=== PATIENT | male | born 1960 | race Caucasian/White ===

== ENCOUNTER 2022-02-14 11:18 | Inpatient (IN) | payer OTHER ==
[~2022-02-14] VITALS: Ht 180.3 cm; Wt 89.9 kg
[~2022-02-14 11:18] MED LIST: heparin 10,000 units/1 ML INJ ONE; papaverine 30 mg/ml 2ml inj. ONE
[2022-02-14 11:43] LABS: BASOPHILS # (AUTO) 0.1 X10'3 (0-0.2); EOSINOPHILS # (AUTO) 0.4 X10'3 (0-0.9); EOSINOPHILS % (AUTO) 5.3 % (0-6); HEMATOCRIT 50.5 % (42.0-52.0); HEMOGLOBIN 16.6 g/dl (14.0-17.9); LYMPHOCYTES # (AUTO) 1.9 X10'3 (1.1-4.8); LYMPHOCYTES % (AUTO) 22.8 % (21-51); MEAN CORPUSCULAR HEMOGLOBIN 29.2 PG (27.0-31.0); MEAN CORPUSCULAR HGB CONC 32.9 g/dL (33.0-36.5); MEAN CORPUSCULAR VOLUME 88.9 FL (78-98); MONOCYTES # (AUTO) 0.9 X10'3 (0-0.9); MONOCYTES % (AUTO) 10.9 % (2-12); PLATELET COUNT 246 X10'3 (140-440); RED BLOOD COUNT 5.69 X10'6 (4.70-6.10); RED CELL DISTRIBUTION WIDTH 14.2 % (11.5-14.5); WHITE BLOOD COUNT 8.4 X10'3 (4.5-11.0)
[2022-02-14 12:01] LABS: ALANINE AMINOTRANSFERASE 56 U/L (12-78); ALBUMIN 3.7 G/DL (3.4-5.0); ALBUMIN/GLOBULIN RATIO 1.1 (1.1-1.5); ALKALINE PHOSPHATASE 82 IU/L (46-116); ANION GAP 7 (8-16); ASPARTATE AMINO TRANSFERASE 37 U/L (10-37); BILIRUBIN,TOTAL 0.5 MG/DL (0.1-1.0); BLOOD UREA NITROGEN 19 MG/DL (7-18); CALCIUM 9.2 MG/DL (8.5-10.1); CHLORIDE 102 MMOL/L (99-107); CREATININE 1.12 MG/DL (0.60-1.10); GLUCOSE 122 MG/DL (70-104); POTASSIUM 3.9 MMOL/L (3.5-5.1); SODIUM 138 MMOL/L (135-145); TOTAL CARBON DIOXIDE 28.7 MMOL/L (24-32); TOTAL PROTEIN 7.2 G/DL (6.4-8.2); eGFR 67 ML/MIN
[2022-02-14] MEDS ORDERED: aspirin 81mg tab.chew PO ONE (12:55)
[2022-02-14] MEDS ORDERED: heparin 10,000 units/1 ML INJ IV ONE (12:59)
[2022-02-14] MEDS: heparin 25,000 UNIT/250ml bag 250 ML IV PRN (13:08)
[2022-02-14 13:31] LABS: APTT 30 SECONDS (22-32)
[2022-02-14] MEDS ORDERED: magnesium hydroxide 30ml (MOM) UD suspension PO PRN (14:00)
[2022-02-14] MEDS ORDERED: HYDROcodone/acetaminophen 5mg/325mg tablet PO PRN (14:00)
[2022-02-14] MEDS ORDERED: ondansetron/PF 4mg/2ml inj IV PRN (14:00)
[2022-02-14] MEDS ORDERED: mag hydrox/Alum hydrox/simeth 30ml oral suspension PO PRN (14:00)
[2022-02-14] MEDS ORDERED: HYDROcodone/acetaminophen 10/325mg tab PO PRN (14:00)
[2022-02-14] MEDS ORDERED: morphine 2 MG/ML inj. syringe IV PRN ×2 (14:00)
[2022-02-14] MEDS ORDERED: nitroGLYCERIN 0.4mg SUBLingual tab SL PRN (14:00)
[2022-02-14] MEDS ORDERED: acetaminophen 325mg tablet PO PRN ×2 (14:00)
--- NOTE | 2022-02-14 15:00 | NUR ---
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
[2022-02-14] MEDS ORDERED: ROSU40TA PO (15:18)
[2022-02-14 15:21] LABS: HEMOGLOBIN A1C 5.9 % (4.5-6.2)
[2022-02-14] MEDS: metoprolol succinate 25mg (24-HOUR) SR. Tablet PO SCH (17:41)
[2022-02-14] MEDS: docusate sod 100mg capsule PO SCH (20:00)
[2022-02-15] VITALS (11 sets, daily range): BP systolic 118–147; BP diastolic 74–94
--- NOTE | 2022-02-15 00:55 | NUR ---
BLOOD SENT TO LAB
--- NOTE | 2022-02-15 01:00 | NUR ---
PTT OF 47, NO CHANGE TO HEPRIN GTT, NEXT PTT AT 0800
--- NOTE | 2022-02-15 07:20 | NUR ---
RN called [facility] to give report for pt @ 2556. Receiving RN unable to take phone call at this time. Will call back shortly.
--- NOTE | 2022-02-15 07:37 | NUR ---
RN gave nurse report to TATUM Phelan at 0727. Pt ready for transfer to floor. Pt stable, VS WNL, pt denies chest pain. Heparin gtt infusing @ 1000 u/hr. Receiving RN notified of need for aptt @ 0800.
--- NOTE | 2022-02-15 07:57 | NUR ---
Pt arrived to 3026 U @ 5692. Pt stable. Call-light within reach. Unit staff aware of pt's arrival.
[2022-02-15 09:17] LABS: BASOPHILS # (AUTO) 0.1 X10'3 (0-0.2); BASOPHILS % (AUTO) 0.9 % (0-1); EOSINOPHILS # (AUTO) 0.4 X10'3 (0-0.9); EOSINOPHILS % (AUTO) 4.7 % (0-6); HEMATOCRIT 51.7 % (42.0-52.0); LYMPHOCYTES % (AUTO) 21.7 % (21-51); MEAN CORPUSCULAR HEMOGLOBIN 29.6 PG (27.0-31.0); MEAN CORPUSCULAR VOLUME 89.8 FL (78-98); MEAN PLATELET VOLUME 8.4 FL (7.4-10.4); MONOCYTES # (AUTO) 0.9 X10'3 (0-0.9); MONOCYTES % (AUTO) 9.4 % (2-12); NEUTROPHILS # (AUTO) 5.9 X10'3 (1.8-7.7); NEUTROPHILS % (AUTO) 63.3 % (42-75); PLATELET COUNT 231 X10'3 (140-440); RED BLOOD COUNT 5.76 X10'6 (4.70-6.10); RED CELL DISTRIBUTION WIDTH 14.3 % (11.5-14.5); WHITE BLOOD COUNT 9.4 X10'3 (4.5-11.0)
[2022-02-15 09:44] LABS: ALBUMIN 3.7 G/DL (3.4-5.0); ANION GAP 5 (8-16); BLOOD UREA NITROGEN 16 MG/DL (7-18); BUN/CREATININE RATIO 15.4 (5.4-32.0); CALCIUM 9.2 MG/DL (8.5-10.1); CHLORIDE 103 MMOL/L (99-107); CHOLESTEROL 145 MG/DL (0-200); CREATININE 1.04 MG/DL (0.60-1.10); GLUCOSE 84 MG/DL (70-104); HDL CHOLESTEROL 48 MG/DL (35-60); LDL CHOLESTEROL 72 MG/DL (50-100); POTASSIUM 3.9 MMOL/L (3.5-5.1); SODIUM 140 MMOL/L (135-145); TOTAL CARBON DIOXIDE 31.9 MMOL/L (24-32); TRIGLYCERIDES 208 MG/DL (20-135); eGFR 73 ML/MIN
[2022-02-15] MEDS: heparin 25,000 UNIT/250ml bag 250 ML IV PRN ×2 (09:49→19:03)
[2022-02-15] MEDS: metoprolol succinate 25mg (24-HOUR) SR. Tablet PO SCH (10:04)
[2022-02-15] MEDS: atorvastatin 20mg tablet PO SCH (10:04)
[2022-02-15] MEDS: aspirin 81mg, enteric-coated 1 TAB TABLET.DR PO SCH (10:05)
[2022-02-15] MEDS: docusate sod 100mg capsule PO SCH ×2 (10:06→20:20)
[2022-02-15] MEDS: heparin 10,000 units/1 ML INJ IV PRN (10:12)
[2022-02-15] MEDS ORDERED: midazolam 1 mg/ML 2ml injection ONE (11:29)
[2022-02-15] MEDS ORDERED: nitroGLYCERIN-Tridil 50MG/D5W 250 ML IV ONE (11:29)
[2022-02-15] MEDS ORDERED: verapamil 2.5 mg/ml inj IV ONE (11:29)
[2022-02-15] MEDS ORDERED: iohexol 350MG/ML 100ml bottle IV ONE ×2 (11:30→12:21)
[2022-02-15] MEDS ORDERED: LIDOcaine 1% 30ml preserv. free vial ONE (11:30)
[2022-02-15] MEDS ORDERED: heparin 1,000unit/ml 10ml vial 10 ML ONE (11:30)
[2022-02-15] MEDS ORDERED: fentaNYL/PF 50MCG/1 ML 2ML syringe ONE (11:30)
[2022-02-15] MEDS ORDERED: adenosine 90 MG/30ml kit =/or below 120kg Cath Lab IV ONE (12:21)
[2022-02-15] MEDS ORDERED: heparin 1,000 UNITS/NS 500ml 500 ML ONE (12:35)
[2022-02-15] MEDS ORDERED: HYDROcodone/acetaminophen 10/325mg tab PO PRN (13:35)
[2022-02-15] MEDS ORDERED: HYDROcodone/acetaminophen 5mg/325mg tablet PO PRN (13:35)
[2022-02-15] MEDS: pantoprazole 40mg Tablet.DR PO SCH (20:20)
[2022-02-15] MEDS: allopurinol 100mg tablet PO SCH (20:21)
[2022-02-15] MEDS: ALPRAZolam 0.25mg tablet PO SCH (23:34)
[2022-02-16 02:35] VITALS: BP 125/65
--- NOTE | 2022-02-16 02:57 | NUR ---
APTT 52. THERAPEUTIC RANGE. NO CHANGES IN HEPARIN GTT PER PROTOCOL. NO BLEEDING TENDENCIES NOTED.
[2022-02-16 06:00] VITALS: BP 120/71
--- NOTE | 2022-02-16 06:37 | NUR ---
Patient in room U 3026. I have received report from ANA LAURA WINN and had the opportunity to ask questions and assume patient care.Bedside report completed. Pt awake. C/O cold feet, Warm blanket applied. Addendum: 02/16/22 at 0639 by Olga Sharma RN Amended: Links added.
[2022-02-16] MEDS: docusate sod 100mg capsule PO SCH ×2 (08:29→22:22)
[2022-02-16] MEDS: atorvastatin 20mg tablet PO SCH (08:29)
[2022-02-16] MEDS: aspirin 81mg, enteric-coated 1 TAB TABLET.DR PO SCH (08:29)
[2022-02-16] MEDS: metoprolol succinate 25mg (24-HOUR) SR. Tablet PO SCH (08:30)
[2022-02-16] MEDS: pantoprazole 40mg Tablet.DR PO SCH ×2 (08:30→22:22)
[2022-02-16] MEDS: ALPRAZolam 0.25mg tablet PO SCH ×3 (08:30→22:26)
[2022-02-16] MEDS: allopurinol 100mg tablet PO SCH ×2 (08:31→22:22)
[2022-02-16 08:47] LABS: BASOPHILS # (AUTO) 0.1 X10'3 (0-0.2); EOSINOPHILS # (AUTO) 0.4 X10'3 (0-0.9); EOSINOPHILS % (AUTO) 5.3 % (0-6); HEMATOCRIT 48.4 % (42.0-52.0); HEMOGLOBIN 16.5 g/dl (14.0-17.9); LYMPHOCYTES # (AUTO) 1.6 X10'3 (1.1-4.8); LYMPHOCYTES % (AUTO) 23.8 % (21-51); MEAN CORPUSCULAR HEMOGLOBIN 29.9 PG (27.0-31.0); MONOCYTES # (AUTO) 0.4 X10'3 (0-0.9); MONOCYTES % (AUTO) 6.7 % (2-12); NEUTROPHILS # (AUTO) 4.2 X10'3 (1.8-7.7); NEUTROPHILS % (AUTO) 63.2 % (42-75); PLATELET COUNT 207 X10'3 (140-440); RED BLOOD COUNT 5.51 X10'6 (4.70-6.10); WHITE BLOOD COUNT 6.7 X10'3 (4.5-11.0)
[2022-02-16 08:58] LABS: ALBUMIN 3.4 G/DL (3.4-5.0); ANION GAP 8 (8-16); BLOOD UREA NITROGEN 15 MG/DL (7-18); BUN/CREATININE RATIO 14.7 (5.4-32.0); CALCIUM 8.8 MG/DL (8.5-10.1); CHLORIDE 101 MMOL/L (99-107); CREATININE 1.02 MG/DL (0.60-1.10); GLUCOSE 160 MG/DL (70-104); POTASSIUM 3.7 MMOL/L (3.5-5.1); SODIUM 136 MMOL/L (135-145); TOTAL CARBON DIOXIDE 26.7 MMOL/L (24-32); eGFR 75 ML/MIN
[2022-02-16] MEDS: heparin 10,000 units/1 ML INJ IV PRN (10:15)
[2022-02-16 11:00] VITALS: BP 120/72
[2022-02-16 15:28] VITALS: BP 129/77
--- NOTE | 2022-02-16 16:33 | NUR ---
PAGER ID: [phone] MESSAGE: [id number] [phone]. The Hep gtt was turned off unknown by me. I just discovered this. Unknown how long it has been off. It is time for PTT draw. I will restart gtt at base 1200. Olga STEEL
[2022-02-16] MEDS: heparin 25,000 UNIT/250ml bag 250 ML IV PRN (16:38)
[2022-02-16 18:00] VITALS: BP 124/60
--- NOTE | 2022-02-16 18:32 | NUR ---
Problems reprioritized. Patient report given, questions answered & plan of care reviewed with Efraín WINN. Bedside report completed. pt visitors at bedside. Addendum: 02/16/22 at 1833 by Olga Sharma RN Amended: Links added.
[2022-02-16 22:00] VITALS: BP 120/68
[2022-02-17 02:00] VITALS: BP 114/66
[2022-02-17 06:40] LABS: BASOPHILS # (AUTO) 0.1 X10'3 (0-0.2); BASOPHILS % (AUTO) 0.9 % (0-1); EOSINOPHILS # (AUTO) 0.4 X10'3 (0-0.9); HEMATOCRIT 49.6 % (42.0-52.0); HEMOGLOBIN 16.6 g/dl (14.0-17.9); LYMPHOCYTES # (AUTO) 2.2 X10'3 (1.1-4.8); LYMPHOCYTES % (AUTO) 30.7 % (21-51); MEAN CORPUSCULAR HEMOGLOBIN 30.1 PG (27.0-31.0); MEAN CORPUSCULAR HGB CONC 33.5 g/dL (33.0-36.5); MEAN CORPUSCULAR VOLUME 89.7 FL (78-98); MEAN PLATELET VOLUME 8.5 FL (7.4-10.4); MONOCYTES # (AUTO) 0.8 X10'3 (0-0.9); MONOCYTES % (AUTO) 10.5 % (2-12); NEUTROPHILS # (AUTO) 3.8 X10'3 (1.8-7.7); NEUTROPHILS % (AUTO) 51.9 % (42-75); PLATELET COUNT 228 X10'3 (140-440); RED BLOOD COUNT 5.53 X10'6 (4.70-6.10); RED CELL DISTRIBUTION WIDTH 14.2 % (11.5-14.5); WHITE BLOOD COUNT 7.3 X10'3 (4.5-11.0)
[2022-02-17 06:47] LABS: ALBUMIN 3.5 G/DL (3.4-5.0); ANION GAP 7 (8-16); BLOOD UREA NITROGEN 15 MG/DL (7-18); BUN/CREATININE RATIO 14.3 (5.4-32.0); CALCIUM 9.1 MG/DL (8.5-10.1); CHLORIDE 103 MMOL/L (99-107); CREATININE 1.05 MG/DL (0.60-1.10); GLUCOSE 97 MG/DL (70-104); POTASSIUM 3.9 MMOL/L (3.5-5.1); SODIUM 139 MMOL/L (135-145); eGFR 72 ML/MIN
[2022-02-17 07:00] VITALS: BP 137/77
[2022-02-17] MEDS: heparin 10,000 units/1 ML INJ IV PRN ×2 (07:13→20:58)
[2022-02-17] MEDS: aspirin 81mg, enteric-coated 1 TAB TABLET.DR PO SCH (08:21)
[2022-02-17] MEDS: docusate sod 100mg capsule PO SCH ×2 (08:21→19:23)
[2022-02-17] MEDS: atorvastatin 20mg tablet PO SCH (08:21)
[2022-02-17] MEDS: pantoprazole 40mg Tablet.DR PO SCH ×2 (08:21→19:23)
[2022-02-17] MEDS: allopurinol 100mg tablet PO SCH ×2 (08:21→19:23)
[2022-02-17] MEDS: ALPRAZolam 0.25mg tablet PO SCH ×2 (08:22→16:23)
[2022-02-17] MEDS: metoprolol succinate 25mg (24-HOUR) SR. Tablet PO SCH (08:22)
[2022-02-17 11:00] VITALS: BP 96/68
[2022-02-17 15:00] VITALS: BP 126/79
[2022-02-17 15:50] LABS: MAGNESIUM 2.4 MG/DL (1.5-2.4)
[2022-02-17 18:00] VITALS: BP 113/72
[2022-02-17] MEDS: heparin 25,000 UNIT/250ml bag 250 ML IV PRN (19:20)
[2022-02-17 22:00] VITALS: BP 114/71
[2022-02-18] MEDS: ALPRAZolam 0.25mg tablet PO SCH ×3 (00:35→16:59)
[2022-02-18 02:00] VITALS: BP 106/53
--- NOTE | 2022-02-18 04:41 | NUR ---
notified of pts ptt of 132 and heparin drip stopped per protocol.
[2022-02-18 06:00] VITALS: BP 134/82
[2022-02-18 06:06] LABS: BASOPHILS # (AUTO) 0.1 X10'3 (0-0.2); BASOPHILS % (AUTO) 0.7 % (0-1); EOSINOPHILS # (AUTO) 0.5 X10'3 (0-0.9); EOSINOPHILS % (AUTO) 6.2 % (0-6); HEMATOCRIT 49.8 % (42.0-52.0); HEMOGLOBIN 16.5 g/dl (14.0-17.9); LYMPHOCYTES # (AUTO) 2.1 X10'3 (1.1-4.8); LYMPHOCYTES % (AUTO) 26.8 % (21-51); MEAN CORPUSCULAR HEMOGLOBIN 29.8 PG (27.0-31.0); MEAN CORPUSCULAR HGB CONC 33.2 g/dL (33.0-36.5); MEAN CORPUSCULAR VOLUME 89.7 FL (78-98); MEAN PLATELET VOLUME 8.3 FL (7.4-10.4); MONOCYTES # (AUTO) 0.8 X10'3 (0-0.9); MONOCYTES % (AUTO) 10.4 % (2-12); NEUTROPHILS # (AUTO) 4.3 X10'3 (1.8-7.7); NEUTROPHILS % (AUTO) 55.9 % (42-75); PLATELET COUNT 221 X10'3 (140-440); RED BLOOD COUNT 5.55 X10'6 (4.70-6.10); RED CELL DISTRIBUTION WIDTH 14.2 % (11.5-14.5); WHITE BLOOD COUNT 7.7 X10'3 (4.5-11.0)
[2022-02-18 06:21] LABS: ALBUMIN 3.4 G/DL (3.4-5.0); ANION GAP 9 (8-16); BLOOD UREA NITROGEN 18 MG/DL (7-18); CALCIUM 9.1 MG/DL (8.5-10.1); CHLORIDE 102 MMOL/L (99-107); CREATININE 1.06 MG/DL (0.60-1.10); GLUCOSE 103 MG/DL (70-104); SODIUM 138 MMOL/L (135-145); TOTAL CARBON DIOXIDE 27.2 MMOL/L (24-32); eGFR 72 ML/MIN
--- NOTE | 2022-02-18 06:40 | NUR ---
Problems reprioritized. Patient report given, questions answered & plan of care reviewed with MARIAM WINN.
--- NOTE | 2022-02-18 07:40 | NUR ---
Paged PAGER ID: [phone] MESSAGE: [id number]. Anh. Critical troponin 1689. Pt CP free & planned CABG for 02/19. Elaina Rdz [phone]
[2022-02-18] MEDS: metoprolol succinate 25mg (24-HOUR) SR. Tablet PO SCH (08:02)
[2022-02-18] MEDS: docusate sod 100mg capsule PO SCH ×2 (08:02→19:47)
[2022-02-18] MEDS: atorvastatin 20mg tablet PO SCH (08:03)
[2022-02-18] MEDS: pantoprazole 40mg Tablet.DR PO SCH ×2 (08:03→19:47)
[2022-02-18] MEDS: aspirin 81mg, enteric-coated 1 TAB TABLET.DR PO SCH (08:03)
[2022-02-18] MEDS: allopurinol 100mg tablet PO SCH ×2 (08:03→19:47)
--- NOTE | 2022-02-18 09:10 | NUR ---
Initial: pt admitted w/ NSTEMI, planning to go for CABG per EMR. Currently on Heart Healthy diet w/ mostly 100% intake of meals meeting est needs at this time. LBM 02/16 receiving routine colace. No nutrition intervention implemented at this time, will continue to monitor. Recommendations 1. Continue Heart Healthy diet as tolerated 2. Monitor need for additional protein s/p procedure 3. Bowel care per rx 4. Scaled wts Addendum: 02/18/22 at [address] Amended: Links added.
[2022-02-18 10:15] VITALS: BP 138/77
[2022-02-18] MEDS: heparin 25,000 UNIT/250ml bag 250 ML IV PRN (11:51)
--- NOTE | 2022-02-18 14:07 | NUR ---
PAGER ID: [phone] MESSAGE: [id number]. critical ptt, held heparin per protocol. Elaina Rdz [phone]
[2022-02-18 15:05] VITALS: BP 113/78
[2022-02-18 17:10] LABS: ABG HCO3 24.3 mmol/L (22.0-26.0); ABG OXYGEN SATURATION 95.1 % (94-97); ABG PCO2 (T) 38.9 mmHg (35.0-48.0); ABG PO2 (T) 73.6 mmHg (75.0-100.0); ALLEN'S TEST POSITIVE; FCOHb 0.5 % (0.0-3.9); FMetHb 0.2 % (0.0-1.5); FO2Hb 94.4 % (94-97); TOTAL HEMOGLOBIN 17.3 G/dl (14.0-17.9)
[2022-02-18 19:00] VITALS: BP 109/72
--- NOTE | 2022-02-18 19:23 | NUR ---
Student documentation: I have reviewed and agree with all interventions, assessments performed and documented by Leah.
[2022-02-18 22:00] VITALS: BP 115/72
[2022-02-19] MEDS: ALPRAZolam 0.25mg tablet PO SCH ×3 (00:42→15:33)
[2022-02-19 02:00] VITALS: BP 117/79
[2022-02-19 06:00] VITALS: BP 130/83
--- NOTE | 2022-02-19 06:22 | NUR ---
Problems reprioritized. Patient report given, questions answered & plan of care reviewed with MARIAM WINN.
--- NOTE | 2022-02-19 06:27 | NUR ---
Per pt request. All AM labs will be drawn at 0800 when cardiac PTT is due too.
[2022-02-19] MEDS ORDERED: dextrose 50%-water 50ml dispensing syringe IV PRN (08:20)
[2022-02-19] MEDS ORDERED: insulin glargine (Lantus) pen - multi-dose SQ PRN (08:20)
[2022-02-19] MEDS ORDERED: gabapentin 400mg capsule PO ONE (08:20)
[2022-02-19] MEDS ORDERED: cefazolin/dext.iso 2gm/50ml 50 ML IV ONE (08:20)
[2022-02-19] MEDS ORDERED: Insulin Reg/NS 100units/100mL 100 ML IV SCH (08:20)
[2022-02-19] MEDS: atorvastatin 20mg tablet PO SCH (08:25)
[2022-02-19] MEDS: metoprolol succinate 25mg (24-HOUR) SR. Tablet PO SCH (08:26)
[2022-02-19] MEDS: docusate sod 100mg capsule PO SCH ×2 (08:27→21:24)
[2022-02-19] MEDS: allopurinol 100mg tablet PO SCH ×2 (08:28→21:26)
[2022-02-19] MEDS: aspirin 81mg, enteric-coated 1 TAB TABLET.DR PO SCH (08:28)
[2022-02-19] MEDS: pantoprazole 40mg Tablet.DR PO SCH ×2 (08:28→21:24)
[2022-02-19 08:49] LABS: BASOPHILS # (AUTO) 0.1 X10'3 (0-0.2); BASOPHILS % (AUTO) 0.9 % (0-1); EOSINOPHILS # (AUTO) 0.4 X10'3 (0-0.9); EOSINOPHILS % (AUTO) 5.2 % (0-6); HEMATOCRIT 50.6 % (42.0-52.0); HEMOGLOBIN 17.1 g/dl (14.0-17.9); LYMPHOCYTES % (AUTO) 25.2 % (21-51); MEAN CORPUSCULAR HGB CONC 33.8 g/dL (33.0-36.5); MEAN PLATELET VOLUME 8.4 FL (7.4-10.4); MONOCYTES # (AUTO) 0.5 X10'3 (0-0.9); MONOCYTES % (AUTO) 6.7 % (2-12); NEUTROPHILS # (AUTO) 4.9 X10'3 (1.8-7.7); PLATELET COUNT 238 X10'3 (140-440); RED BLOOD COUNT 5.69 X10'6 (4.70-6.10); RED CELL DISTRIBUTION WIDTH 14.2 % (11.5-14.5); WHITE BLOOD COUNT 7.8 X10'3 (4.5-11.0)
[2022-02-19 08:57] LABS: ALBUMIN 3.7 G/DL (3.4-5.0); ANION GAP 7 (8-16); BLOOD UREA NITROGEN 19 MG/DL (7-18); BUN/CREATININE RATIO 16.2 (5.4-32.0); CALCIUM 9.4 MG/DL (8.5-10.1); CHLORIDE 101 MMOL/L (99-107); CREATININE 1.17 MG/DL (0.60-1.10); GLUCOSE 163 MG/DL (70-104); POTASSIUM 4.2 MMOL/L (3.5-5.1); SODIUM 135 MMOL/L (135-145); TOTAL CARBON DIOXIDE 27.3 MMOL/L (24-32); eGFR 64 ML/MIN
[2022-02-19 10:30] VITALS: BP 144/80
[2022-02-19] MEDS: heparin 25,000 UNIT/250ml bag 250 ML IV PRN (11:50)
[2022-02-19 13:00] VITALS: BP 131/88
[2022-02-19 18:00] VITALS: BP 131/82
--- NOTE | 2022-02-19 18:24 | NUR ---
Problems reprioritized. Patient report given, questions answered & plan of care reviewed with TATUM Bennett.
--- NOTE | 2022-02-19 18:24 | NUR ---
Student documentation: I have reviewed and agree with all interventions, assessments performed and documented by Leah.
--- NOTE | 2022-02-19 18:25 | NUR ---
Patient in room PCU 3026. I have received report from TATUM Alvarado and had the opportunity to ask questions and assume patient care. Patient resting comfortably on hospital bed visiting with family.
[2022-02-19] MEDS ORDERED: mupirocin 2% nasal ointment 1gm UD NS SCH (20:00)
[2022-02-19 22:00] VITALS: BP 112/71
[2022-02-19] MEDS ORDERED: ringers solution, lacted 1,000 ML IV ONE (22:05)
[2022-02-20] VITALS (15 sets, daily range): BP systolic 102–202; BP diastolic 54–83
[2022-02-20] MEDS: ALPRAZolam 0.25mg tablet PO SCH (00:20)
[2022-02-20 02:36] LABS: BASOPHILS # (AUTO) 0.1 X10'3 (0-0.2); BASOPHILS % (AUTO) 0.9 % (0-1); EOSINOPHILS # (AUTO) 0.5 X10'3 (0-0.9); EOSINOPHILS % (AUTO) 5.8 % (0-6); HEMATOCRIT 49.9 % (42.0-52.0); HEMOGLOBIN 16.5 g/dl (14.0-17.9); LYMPHOCYTES # (AUTO) 1.8 X10'3 (1.1-4.8); LYMPHOCYTES % (AUTO) 21.6 % (21-51); MEAN CORPUSCULAR HEMOGLOBIN 29.5 PG (27.0-31.0); MEAN CORPUSCULAR HGB CONC 33.1 g/dL (33.0-36.5); MEAN CORPUSCULAR VOLUME 89.3 FL (78-98); MEAN PLATELET VOLUME 8.3 FL (7.4-10.4); MONOCYTES # (AUTO) 0.7 X10'3 (0-0.9); MONOCYTES % (AUTO) 9.2 % (2-12); NEUTROPHILS # (AUTO) 5.1 X10'3 (1.8-7.7); NEUTROPHILS % (AUTO) 62.5 % (42-75); PLATELET COUNT 231 X10'3 (140-440); RED BLOOD COUNT 5.58 X10'6 (4.70-6.10); RED CELL DISTRIBUTION WIDTH 14.3 % (11.5-14.5); WHITE BLOOD COUNT 8.1 X10'3 (4.5-11.0)
[2022-02-20 02:42] LABS: ALBUMIN 3.5 G/DL (3.4-5.0); ANION GAP 8 (8-16); BLOOD UREA NITROGEN 19 MG/DL (7-18); CHLORIDE 100 MMOL/L (99-107); CREATININE 1.12 MG/DL (0.60-1.10); GLUCOSE 116 MG/DL (70-104); POTASSIUM 3.8 MMOL/L (3.5-5.1); SODIUM 136 MMOL/L (135-145); TOTAL CARBON DIOXIDE 27.9 MMOL/L (24-32); eGFR 67 ML/MIN
[2022-02-20] MEDS ORDERED: Insulin Reg/NS 100units/100mL 100 ML IV SCH ×2 (05:30→14:00)
[2022-02-20] MEDS ORDERED: cefazolin/dext.iso 2gm/50ml 50 ML IV ONE (05:30)
[2022-02-20] MEDS ORDERED: insulin glargine (Lantus) pen - multi-dose SQ PRN ×2 (05:30→14:00)
[2022-02-20] MEDS ORDERED: LORazepam 2 mg/ml vial IV ONE (06:00)
[2022-02-20] MEDS ORDERED: famotidine 20mg tablet PO ONE (06:00)
[2022-02-20] MEDS ORDERED: ceFAZolin 1000mg inj ONE ×3 (06:22→11:21)
[2022-02-20] MEDS ORDERED: BUPIVAcaine/PF 2.5 mg/ml (0.25%) 30ml vial ONE (06:23)
--- NOTE | 2022-02-20 06:24 | NUR ---
Problems reprioritized. Patient report given, questions answered & plan of care reviewed with TATUM Wen.
--- NOTE | 2022-02-20 06:55 | NUR ---
Patient in room PCU 3026. I have received report from Sabrina WINN and had the opportunity to ask questions and assume patient care.
[2022-02-20] MEDS ORDERED: epiNEPHrine 1 mg/ml inj ONE ×2 (07:05→11:21)
[2022-02-20] MEDS: metoprolol succinate 25mg (24-HOUR) SR. Tablet PO SCH (07:47)
[2022-02-20] MEDS ORDERED: midazolam 1 mg/ML 2ml injection ONE (07:57)
[2022-02-20] MEDS ORDERED: fentaNYL /PF 50mcg/ml 5ml ampule ONE ×2 (07:58→09:09)
[2022-02-20] MEDS: allopurinol 100mg tablet PO SCH ×2 (08:00→20:00)
[2022-02-20] MEDS ORDERED: aminocaproic acid 250 MG/1 ML inj. ONE (08:00)
[2022-02-20] MEDS ORDERED: heparin 10,000 units/1 ML INJ ONE (08:00)
[2022-02-20] MEDS ORDERED: LORazepam 2 mg/ml vial ONE (08:01)
[2022-02-20] MEDS ORDERED: MESSAGE TO PHARMACY IJ ONE (08:30)
[2022-02-20] MEDS: albumin (human) 5% 500 ML NS IV SCH ×4 (08:35→14:56)
[2022-02-20 08:59] LABS: ABG BASE EXCESS 1.2 mmol/L (-2.0-2.0); ABG HCO3 24.8 mmol/L (22.0-26.0); ABG OXYGEN SATURATION 99.7 % (94-97); ABG PCO2 36.5 mmHg (35.0-48.0); ABG PO2 348.3 mmHg (75.0-100.0); CL (ABG) 102 mmol/L (99-107); FCOHb 0.9 % (0.0-3.9); FMetHb 0.1 % (0.0-1.5); FO2Hb 98.7 % (94-97); GLUCOSE (ABG) 104 mg/dl (70-104); IONIZED CA (ABG) 1.16 mmol/L (1.10-1.30); K (ABG) 4.3 mmol/L (3.5-5.1); TOTAL HEMOGLOBIN 17.1 G/dl (14.0-17.9)
[2022-02-20] MEDS ORDERED: albumin (human) 5% 500 ML NS IV SCH ×2 (09:15)
[2022-02-20 09:17] LABS: ACT @ 1.70 U 304 SEC (193-297); ACT @ 2.84 U 431 SEC (260-420); BASELINE ACT 159 SEC (101-148); PATIENT WEIGHT 91.0k KG
[2022-02-20] MEDS: heparin 10,000 units/1 ML INJ IV PRN (09:31)
--- NOTE | 2022-02-20 09:35 | NUR ---
Pt transferred to OR at 0815 for CABG. Will go to ICU after surgery.
[2022-02-20] MEDS ORDERED: MESSAGE TO NURSING PO ONE ×4 (10:00)
[2022-02-20] MEDS ORDERED: papaverine 30 mg/ml 2ml inj. IA ONE (10:05)
[2022-02-20 10:13] LABS: ABG BASE EXCESS VENOUS -0.6 mmol/L (-2.0 - 2.0); ABG HCO3 VENOUS 25.3 mmol/L (21.0-28.0); ABG PCO2 VENOUS 45.8 mmHg (41.0-54.0); ABG PO2 VENOUS 59.6 mmHg (25.0-35.0); CL (ABG) 101 mmol/L (99-107); FCOHb VENOUS 1.4 %; FHHb VENOUS 9.9 %; FMetHb VENOUS 0.4 % (0.0 - 0.5); FO2Hb VENOUS 88.3 %; GLUCOSE (ABG) 137 mg/dl (70-104); K (ABG) 3.7 mmol/L (3.5-5.1); TOTAL HEMOGLOBIN 15.6 G/dl (14.0-17.9)
[2022-02-20] MEDS ORDERED: ipratropium/albuterol 3ml nebule IH PRN (10:45)
[2022-02-20 10:55] LABS: ABG BASE EXCESS VENOUS 0.2 mmol/L (-2.0 - 2.0); ABG PCO2 VENOUS 41.1 mmHg (41.0-54.0); ABG PO2 VENOUS 46.1 mmHg (25.0-35.0); CL (ABG) 101 mmol/L (99-107); FCOHb VENOUS 1.1 %; FHHb VENOUS 17.5 %; FMetHb VENOUS 0.3 % (0.0 - 0.5); FO2Hb VENOUS 81.1 %; GLUCOSE (ABG) 127 mg/dl (70-104); IONIZED CA (ABG) 1.09 mmol/L (1.10-1.30); K (ABG) 4.2 mmol/L (3.5-5.1); TOTAL HEMOGLOBIN 15.5 G/dl (14.0-17.9)
[2022-02-20] MEDS ORDERED: phenylephrine 10mg/ml inj. ONE (11:21)
[2022-02-20] MEDS ORDERED: rocuronium 10mg/ml inj IV ONE (11:21)
[2022-02-20] MEDS ORDERED: etomidate 2mg/ml inj. ONE (11:21)
[2022-02-20] MEDS ORDERED: LIDOcaine 2% (20mg/ml) 5ml vial ONE (11:21)
[2022-02-20 11:45] LABS: ABG PCO2 VENOUS 38.5 mmHg (41.0-54.0); ABG PO2 VENOUS 49.4 mmHg (25.0-35.0); CL (ABG) 101 mmol/L (99-107); FCOHb VENOUS 1.1 %; FHHb VENOUS 15.8 %; FO2Hb VENOUS 83.1 %; GLUCOSE (ABG) 130 mg/dl (70-104); IONIZED CA (ABG) 1.11 mmol/L (1.10-1.30); K (ABG) 4.5 mmol/L (3.5-5.1); TOTAL HEMOGLOBIN 15.2 G/dl (14.0-17.9)
[2022-02-20 13:20] LABS: ACTIVATED CLOTTING TIME 112 SEC (101-148)
[2022-02-20 13:20] LABS: ABG BASE EXCESS VENOUS 0.3 mmol/L (-2.0 - 2.0); ABG HCO3 VENOUS 26.8 mmol/L (21.0-28.0); ABG PCO2 VENOUS 50.4 mmHg (41.0-54.0); CL (ABG) 103 mmol/L (99-107); FCOHb VENOUS 0.8 %; FHHb VENOUS 21.4 %; FO2Hb VENOUS 77.8 %; GLUCOSE (ABG) 138 mg/dl (70-104); IONIZED CA (ABG) 1.07 mmol/L (1.10-1.30); K (ABG) 4.5 mmol/L (3.5-5.1); TOTAL HEMOGLOBIN 15.4 G/dl (14.0-17.9)
[2022-02-20] MEDS ORDERED: fentaNYL/PF 50MCG/1 ML 2ML syringe ONE (13:22)
[2022-02-20] MEDS ORDERED: furosemide 40mg/4ml inj ONE (13:31)
[2022-02-20] MEDS ORDERED: labetalol 20mg/4ml (5mg/ml) syringe IV ONE (13:38)
[2022-02-20] MEDS ORDERED: sodium phosphate inj. 30 MMOL in dextrose 5%-water 250 ML IV PRN (14:00)
[2022-02-20] MEDS ORDERED: magnesium citrate 296ml oral solution PO PRN (14:00)
[2022-02-20] MEDS ORDERED: magnesium 2GM in 50ml NS 50 ML IV PRN (14:00)
[2022-02-20] MEDS ORDERED: DOPamine 400mg/D5W 250ml 250 ML IV PRN (14:00)
[2022-02-20] MEDS ORDERED: albumin (Human) 5% 250ml 250 ML IV PRN (14:00)
[2022-02-20] MEDS ORDERED: nitroGLYCERIN-Tridil 50MG/D5W 250 ML IV PRN (14:00)
[2022-02-20] MEDS ORDERED: potassium Cl 40MEQ/270ML bag 250 ML IV PRN (14:00)
[2022-02-20] MEDS ORDERED: acetaminophen 325mg tablet PO PRN ×2 (14:00)
[2022-02-20] MEDS ORDERED: bisacodyl 10mg suppository rectal RC PRN (14:00)
[2022-02-20] MEDS ORDERED: Neutra Phos packet PO PRN (14:00)
[2022-02-20] MEDS ORDERED: NORepinephrine 8mg/ 250ml NS 250 ML IV PRN (14:00)
[2022-02-20] MEDS ORDERED: potassium Cl 20 mEq SR tablet PO PRN (14:00)
[2022-02-20] MEDS ORDERED: normal saline 250ml IV soln 250 ML IV PRN (14:00)
[2022-02-20] MEDS ORDERED: metoclopramide 5 mg/ml inj IV PRN (14:00)
[2022-02-20] MEDS ORDERED: magnesium hydroxide 30ml (MOM) UD suspension PO PRN (14:00)
[2022-02-20] MEDS ORDERED: dextrose 50%-water 50ml dispensing syringe IV PRN (14:00)
[2022-02-20] MEDS ORDERED: potassium Cl 40MEQ/1/2NS 520ml 520 ML IV PRN (14:00)
[2022-02-20] MEDS ORDERED: mineral oil 133ml enema RC PRN (14:00)
[2022-02-20] MEDS ORDERED: ondansetron/PF 4mg/2ml inj IV PRN (14:00)
[2022-02-20] MEDS ORDERED: magnesium 4gm in 100ml NS 100 ML IV PRN (14:00)
[2022-02-20] MEDS ORDERED: niCARDipine-NS 40mg/200ml IVPB 200 ML IV PRN (14:00)
[2022-02-20] MEDS ORDERED: potassium CL 10mEq/100ml bag 100 ML IV PRN (14:00)
[2022-02-20] MEDS ORDERED: sodium phosphate inj. 15 MMOL in dextrose 5%-water 250 ML IV PRN (14:00)
[2022-02-20] MEDS ORDERED: sodium chloride 0.45% 1,000 ML IV SCH (14:00)
[2022-02-20 14:23] LABS: ABG BASE EXCESS -2.6 mmol/L (-2.0-2.0); ABG HCO3 23.1 mmol/L (22.0-26.0); ABG OXYGEN SATURATION 98.7 % (94-97); ABG PCO2 (T) 42.1 mmHg (35.0-48.0); ABG PO2 (T) 152.4 mmHg (75.0-100.0); FCOHb 0.2 % (0.0-3.9); FMetHb 0.4 % (0.0-1.5); FO2Hb 98.1 % (94-97); PATIENT TEMPERATURE 36.5; PEEP 5 cm H2O; RESPIRATORY RATE 12 b/min; TIDAL VOLUME 600 mL; TOTAL HEMOGLOBIN 16.6 G/dl (14.0-17.9)
[2022-02-20] MEDS: ketorolac tromethamine 15mg/ml inj. IV SCH ×2 (14:55→20:04)
[2022-02-20] MEDS: morphine 4 MG/ML inj SYRINge IV PRN ×5 (14:55→23:51)
[2022-02-20 14:57] LABS: BASOPHILS % (AUTO) 0.2 % (0-1); EOSINOPHILS # (AUTO) 0.3 X10'3 (0-0.9); EOSINOPHILS % (AUTO) 2.2 % (0-6); HEMATOCRIT 46.3 % (42.0-52.0); HEMOGLOBIN 15.4 g/dl (14.0-17.9); LYMPHOCYTES # (AUTO) 1.8 X10'3 (1.1-4.8); LYMPHOCYTES % (AUTO) 12.4 % (21-51); MEAN CORPUSCULAR HEMOGLOBIN 29.9 PG (27.0-31.0); MEAN CORPUSCULAR HGB CONC 33.3 g/dL (33.0-36.5); MEAN CORPUSCULAR VOLUME 89.7 FL (78-98); MEAN PLATELET VOLUME 8.1 FL (7.4-10.4); MONOCYTES # (AUTO) 0.7 X10'3 (0-0.9); MONOCYTES % (AUTO) 4.9 % (2-12); NEUTROPHILS # (AUTO) 11.5 X10'3 (1.8-7.7); NEUTROPHILS % (AUTO) 80.3 % (42-75); PLATELET COUNT 156 X10'3 (140-440); RED BLOOD COUNT 5.16 X10'6 (4.70-6.10); RED CELL DISTRIBUTION WIDTH 14.4 % (11.5-14.5); WHITE BLOOD COUNT 14.3 X10'3 (4.5-11.0)
[2022-02-20] MEDS: ROPIVAcaine 0.2%/PF PUMP/bolus 545 ML MEDSTERN SCH ×2 (14:57)
[2022-02-20 15:07] LABS: APTT 30 SECONDS (22-32)
[2022-02-20 15:08] LABS: ALANINE AMINOTRANSFERASE 61 U/L (12-78); ALBUMIN 3.3 G/DL (3.4-5.0); ALBUMIN/GLOBULIN RATIO 1.2 (1.1-1.5); ALKALINE PHOSPHATASE 78 IU/L (46-116); ANION GAP 9 (8-16); ASPARTATE AMINO TRANSFERASE 44 U/L (10-37); BILIRUBIN,TOTAL 0.7 MG/DL (0.1-1.0); BLOOD UREA NITROGEN 16 MG/DL (7-18); BUN/CREATININE RATIO 13.8 (5.4-32.0); CALCIUM 7.5 MG/DL (8.5-10.1); CHLORIDE 104 MMOL/L (99-107); CREATININE 1.16 MG/DL (0.60-1.10); GLUCOSE 138 MG/DL (70-104); MAGNESIUM 1.4 MG/DL (1.5-2.4); PHOSPHORUS 3.2 MG/DL (2.3-4.5); POTASSIUM 3.9 MMOL/L (3.5-5.1); SODIUM 137 MMOL/L (135-145); TOTAL CARBON DIOXIDE 23.8 MMOL/L (24-32); TOTAL PROTEIN 6.1 G/DL (6.4-8.2); eGFR 64 ML/MIN
[2022-02-20] MEDS: dexmedetomidin/NS 400mcg/100ml 100 ML IV SCH (15:16)
[2022-02-20] MEDS: ceFAZolin/D5W- 1GM premix 50 ML IV SCH ×2 (16:03→23:50)
--- NOTE | 2022-02-20 16:08 | NUR ---
Emergent extubation pt agitation per ok to extubate, no stridor post extubation. Pt placed on 5lpm NC, c/o pain, RN gave pain meds, new order from to place on HFNC as needed bipap prn. PT placed on Salter HFNC at this time sonorous respirations. Awakens to stimuli sp02 92% on 7lpm Addendum: 02/20/22 at 1610 by Kalyani Rodriguez RT Amended: Links added.
[2022-02-20] MEDS: potassium Cl 20mEq/100mL bag 100 ML IV PRN ×2 (17:28→19:46)
[2022-02-20] MEDS ORDERED: acetaminophen 1,000mg/100ml IV 100 ML IV ONE (18:16)
[2022-02-20] MEDS: mupirocin 2% nasal ointment 1gm UD NS SCH (20:05)
[2022-02-20] MEDS: vancomycin/NS 1 GM ADD-VANTAGE 250 ML IV SCH (20:05)
[2022-02-20] MEDS: atorvastatin 10mg tablet PO SCH (20:05)
[2022-02-20] MEDS: sennosides/docusate sodium tablet PO SCH (20:05)
[2022-02-20] MEDS: gabapentin 300mg capsule PO SCH (20:06)
[2022-02-20] MEDS: HYDROcodone/acetaminophen 10/325mg tab PO PRN (21:57)
[2022-02-21] VITALS (23 sets, daily range): BP systolic 95–127; BP diastolic 56–95
[2022-02-21] MEDS: ketorolac tromethamine 15mg/ml inj. IV SCH ×2 (02:03→08:14)
[2022-02-21] MEDS: dexmedetomidin/NS 400mcg/100ml 100 ML IV SCH (02:20)
[2022-02-21 02:53] LABS: BASOPHILS % (AUTO) 0.4 % (0-1); EOSINOPHILS % (AUTO) 0.3 % (0-6); HEMATOCRIT 41.1 % (42.0-52.0); HEMOGLOBIN 13.9 g/dl (14.0-17.9); LYMPHOCYTES # (AUTO) 1.1 X10'3 (1.1-4.8); MEAN CORPUSCULAR HEMOGLOBIN 30.3 PG (27.0-31.0); MEAN CORPUSCULAR HGB CONC 33.9 g/dL (33.0-36.5); MEAN CORPUSCULAR VOLUME 89.4 FL (78-98); MEAN PLATELET VOLUME 8.4 FL (7.4-10.4); MONOCYTES # (AUTO) 0.7 X10'3 (0-0.9); NEUTROPHILS # (AUTO) 8.7 X10'3 (1.8-7.7); NEUTROPHILS % (AUTO) 82.3 % (42-75); PLATELET COUNT 193 X10'3 (140-440); RED BLOOD COUNT 4.59 X10'6 (4.70-6.10); RED CELL DISTRIBUTION WIDTH 14.2 % (11.5-14.5); WHITE BLOOD COUNT 10.6 X10'3 (4.5-11.0)
[2022-02-21 03:00] LABS: APTT 30 SECONDS (22-32)
[2022-02-21 03:05] LABS: ALANINE AMINOTRANSFERASE 50 U/L (12-78); ALBUMIN 3.4 G/DL (3.4-5.0); ALBUMIN/GLOBULIN RATIO 1.3 (1.1-1.5); ALKALINE PHOSPHATASE 68 IU/L (46-116); ANION GAP 8 (8-16); ASPARTATE AMINO TRANSFERASE 40 U/L (10-37); BILIRUBIN,TOTAL 0.7 MG/DL (0.1-1.0); BLOOD UREA NITROGEN 15 MG/DL (7-18); BUN/CREATININE RATIO 13.9 (5.4-32.0); CALCIUM 7.6 MG/DL (8.5-10.1); CHLORIDE 104 MMOL/L (99-107); CREATININE 1.08 MG/DL (0.60-1.10); GLUCOSE 119 MG/DL (70-104); MAGNESIUM 2.8 MG/DL (1.5-2.4); PHOSPHORUS 3.3 MG/DL (2.3-4.5); POTASSIUM 4.6 MMOL/L (3.5-5.1); SODIUM 137 MMOL/L (135-145); TOTAL CARBON DIOXIDE 24.9 MMOL/L (24-32); eGFR 70 ML/MIN
[2022-02-21] MEDS: HYDROcodone/acetaminophen 10/325mg tab PO PRN ×3 (03:11→14:40)
[2022-02-21] MEDS ORDERED: ALPRAZolam 0.25mg tablet PO PRN (05:40)
[2022-02-21] MEDS: ALPRAZolam 0.5mg tablet PO PRN ×2 (05:54→20:37)
--- NOTE | 2022-02-21 06:19 | NUR ---
PATIENT CLAIMED HIS ANXIETY IS ACTING UP ,CLAIMED HIS HR IS RACING ALTHOUGH IS ONLY ON LOWER 90S , CLAIMED HIS HAVING A LOT OF HALLUCINATION , VITALS STABLE , NOTIFIED AND GOT AN OEDER FOR XANAX .
--- NOTE | 2022-02-21 06:22 | NUR ---
Problems reprioritized. Patient report given, questions answered & plan of care reviewed with JASBIR WINN.
[2022-02-21] MEDS ORDERED: temazepam 15mg capsule PO PRN (06:50)
[2022-02-21] MEDS: dexmedetomidine inj. 400 MCG in normal saline 100ml IV soln 96 ML IV SCH ×2 (07:15→18:19)
[2022-02-21] MEDS ORDERED: folic acid/vitamin B complex w/vitamin C 0.8mg tablet PO SCH (08:00)
[2022-02-21] MEDS ORDERED: metoprolol tartrate 12.5mg (1/2 tablet) PO SCH (08:00)
[2022-02-21] MEDS ORDERED: lisinopril 2.5mg tablet PO SCH (08:00)
[2022-02-21] MEDS: sennosides/docusate sodium tablet PO SCH ×2 (08:11→20:37)
[2022-02-21] MEDS: allopurinol 100mg tablet PO SCH ×2 (08:11→20:37)
[2022-02-21] MEDS: ceFAZolin/D5W- 1GM premix 50 ML IV SCH ×3 (08:11→23:08)
[2022-02-21] MEDS: gabapentin 300mg capsule PO SCH ×3 (08:12→20:37)
[2022-02-21] MEDS: metoprolol succinate 25mg (24-HOUR) SR. Tablet PO SCH ×2 (08:12→20:37)
[2022-02-21] MEDS: aspirin 81mg tab.chew PO SCH (08:12)
[2022-02-21] MEDS: mupirocin 2% nasal ointment 1gm UD NS SCH ×2 (08:13→20:38)
[2022-02-21] MEDS: clopidogrel 75mg tablet PO SCH (08:13)
[2022-02-21] MEDS: ROPIVAcaine 0.2%/PF PUMP/bolus 545 ML MEDSTERN SCH ×2 (08:20)
[2022-02-21] MEDS ORDERED: aspirin 81mg tab.chew PO SCH (08:30)
[2022-02-21] MEDS: vancomycin/NS 1 GM ADD-VANTAGE 250 ML IV SCH ×2 (09:07→20:36)
[2022-02-21] MEDS: potassium Cl 20 mEq SR tablet PO SCH ×2 (09:07→16:53)
[2022-02-21] MEDS: bumetanide 1mg tablet PO SCH ×2 (09:07→20:36)
--- NOTE | 2022-02-21 11:14 | NUR ---
CABG Consult: Pt post-op day 1 s/p OPCAB x4 per EMR; would benefit from written/verbal high protein/HH diet eds w/ RD contact information post-op prior to discharge. Addendum: 02/21/22 at [address] Amended: Links added.
--- NOTE | 2022-02-21 11:45 | NUR ---
Problems reprioritized. Patient report given, questions answered & plan of care reviewed with TATUM Rebolledo.
[2022-02-21] MEDS: morphine 2 MG/ML inj. syringe IV PRN ×2 (14:55→18:33)
[2022-02-21] MEDS: morphine 4 MG/ML inj SYRINge IV PRN ×2 (20:33→23:07)
[2022-02-21] MEDS: atorvastatin 10mg tablet PO SCH (20:37)
[2022-02-22] VITALS (23 sets, daily range): BP systolic 102–137; BP diastolic 58–85
[2022-02-22] MEDS: morphine 4 MG/ML inj SYRINge IV PRN ×3 (02:25→07:31)
[2022-02-22 03:24] LABS: BASOPHILS % (AUTO) 0.2 % (0-1); EOSINOPHILS # (AUTO) 0.4 X10'3 (0-0.9); EOSINOPHILS % (AUTO) 3.6 % (0-6); HEMATOCRIT 43.1 % (42.0-52.0); HEMOGLOBIN 14.5 g/dl (14.0-17.9); LYMPHOCYTES # (AUTO) 1.6 X10'3 (1.1-4.8); LYMPHOCYTES % (AUTO) 14.3 % (21-51); MEAN CORPUSCULAR HEMOGLOBIN 30.2 PG (27.0-31.0); MEAN CORPUSCULAR HGB CONC 33.7 g/dL (33.0-36.5); MEAN CORPUSCULAR VOLUME 89.6 FL (78-98); MEAN PLATELET VOLUME 8.2 FL (7.4-10.4); MONOCYTES # (AUTO) 1.1 X10'3 (0-0.9); NEUTROPHILS # (AUTO) 7.9 X10'3 (1.8-7.7); NEUTROPHILS % (AUTO) 71.9 % (42-75); PLATELET COUNT 197 X10'3 (140-440); RED BLOOD COUNT 4.81 X10'6 (4.70-6.10); RED CELL DISTRIBUTION WIDTH 14.5 % (11.5-14.5)
[2022-02-22 03:40] LABS: ALBUMIN 3.3 G/DL (3.4-5.0); ANION GAP 5 (8-16); BLOOD UREA NITROGEN 13 MG/DL (7-18); BUN/CREATININE RATIO 10.7 (5.4-32.0); CALCIUM 8.2 MG/DL (8.5-10.1); CHLORIDE 101 MMOL/L (99-107); CREATININE 1.22 MG/DL (0.60-1.10); GLUCOSE 98 MG/DL (70-104); MAGNESIUM 2.2 MG/DL (1.5-2.4); PHOSPHORUS 2.2 MG/DL (2.3-4.5); POTASSIUM 4.1 MMOL/L (3.5-5.1); SODIUM 137 MMOL/L (135-145); eGFR 61 ML/MIN
[2022-02-22] MEDS: dexmedetomidine inj. 400 MCG in normal saline 100ml IV soln 96 ML IV SCH (05:15)
--- NOTE | 2022-02-22 05:30 | NUR ---
awake complained of incisional pain of 10/10 , claimed wants to have Morphine for pain cause thats the only meds work for him.
--- NOTE | 2022-02-22 06:11 | NUR ---
Problems reprioritized. Patient report given, questions answered & plan of care reviewed with FLASH WINN.
[2022-02-22] MEDS: pantoprazole 40mg Tablet.DR PO SCH (07:30)
[2022-02-22] MEDS: gabapentin 300mg capsule PO SCH ×2 (08:00→13:03)
[2022-02-22] MEDS: mupirocin 2% nasal ointment 1gm UD NS SCH (08:00)
[2022-02-22] MEDS: bumetanide 1mg tablet PO SCH ×2 (08:00→20:52)
[2022-02-22] MEDS: allopurinol 100mg tablet PO SCH ×2 (08:00→20:52)
[2022-02-22] MEDS: sennosides/docusate sodium tablet PO SCH ×2 (08:00→20:52)
[2022-02-22] MEDS: clopidogrel 75mg tablet PO SCH (08:00)
[2022-02-22] MEDS ORDERED: magnesium 4gm in 100ml NS 100 ML IV PRN (08:30)
[2022-02-22] MEDS: aspirin 81mg tab.chew PO SCH (08:30)
[2022-02-22] MEDS ORDERED: potassium Cl 20mEq/100mL bag 100 ML IV PRN (08:30)
[2022-02-22] MEDS ORDERED: potassium Cl 40MEQ/270ML bag 250 ML IV PRN (08:30)
[2022-02-22] MEDS ORDERED: potassium CL 10mEq/100ml bag 100 ML IV PRN (08:30)
[2022-02-22] MEDS ORDERED: potassium Cl 20 mEq SR tablet PO PRN ×2 (08:30)
[2022-02-22] MEDS ORDERED: magnesium 2GM in 50ml NS 50 ML IV PRN (08:30)
[2022-02-22] MEDS ORDERED: potassium Cl 40MEQ/1/2NS 520ml 520 ML IV PRN (08:30)
[2022-02-22] MEDS: folic acid/vitamin B complex w/vitamin C 0.8mg tablet PO SCH (09:20)
[2022-02-22] MEDS ORDERED: metoclopramide 10mg tablet PO PRN (09:30)
[2022-02-22] MEDS: oxyCODONE/APAP 5-325mg tablet PO PRN ×3 (09:53→20:59)
[2022-02-22] MEDS: lisinopril 5mg tablet PO SCH (10:00)
--- NOTE | 2022-02-22 11:08 | NUR ---
F/u 02/22: Pt/SO seen by BERENICE for written/verbal high protein/HH diet eds w/ RD contact information provided. Pt requests additional proteins w/ meals dietary notified. Pt is agreeable to peach vs strawberry-banana Selvin smoothie BIDBL for wound healing; PA notified. RD encouraged pt/SO to contact dietitian's office if further questions/concerns. Addendum: 02/22/22 at [address] Amended: Links added.
[2022-02-22] MEDS ORDERED: JUVEN Smoothie Arginine/Glut./Ca2+Bmb (Juven 19.3pkt) 240ml cup PO SCH (12:30)
[2022-02-22] MEDS: ALPRAZolam 0.5mg tablet PO SCH ×3 (13:00→20:52)
[2022-02-22] MEDS: lactobacillus rhamnosus 10,000 MMU CELLS/CAPSULE PO SCH ×2 (13:04→16:50)
--- NOTE | 2022-02-22 19:07 | NUR ---
Clarified transfer orders with Dr. Chicas and updated on patient's current condition. Okay to transfer to Telemetry floor with tele if bed needed and no new issues.
[2022-02-22] MEDS: metoprolol succinate 25mg (24-HOUR) SR. Tablet PO SCH (20:51)
[2022-02-22] MEDS: atorvastatin 10mg tablet PO SCH (20:53)
[2022-02-22] MEDS: magnesium Cl slow-release 64mg tablet PO SCH (20:53)
--- NOTE | 2022-02-22 21:46 | NUR ---
Report called to receiving nurse. Transferred via wheelchair. Belongings sent up with pt. Special Issues communicated to receiving nurseCuong. Addendum: 02/22/22 at 2244 by Jorge Galvan Traveler RN Pt helped into bed and given call light. Call light on to notify staff of arrival. Belongings with pt. Chart given to charge nurse, Latonya, and informed her that pt was in bed. This was approximately 2205.
[2022-02-23 02:00] VITALS: BP 107/74
[2022-02-23] MEDS: oxyCODONE/APAP 5-325mg tablet PO PRN ×6 (02:14→23:36)
[2022-02-23 06:00] VITALS: BP 113/61
[2022-02-23 06:28] LABS: ALBUMIN 3.1 G/DL (3.4-5.0); ANION GAP 5 (8-16); BLOOD UREA NITROGEN 22 MG/DL (7-18); BUN/CREATININE RATIO 16.4 (5.4-32.0); CHLORIDE 98 MMOL/L (99-107); CREATININE 1.34 MG/DL (0.60-1.10); GLUCOSE 104 MG/DL (70-104); POTASSIUM 4.7 MMOL/L (3.5-5.1); SODIUM 135 MMOL/L (135-145); TOTAL CARBON DIOXIDE 32.3 MMOL/L (24-32); eGFR 55 ML/MIN
[2022-02-23 06:35] LABS: BASOPHILS % (AUTO) 0.4 % (0-1); EOSINOPHILS # (AUTO) 0.6 X10'3 (0-0.9); EOSINOPHILS % (AUTO) 5.7 % (0-6); HEMATOCRIT 43.6 % (42.0-52.0); HEMOGLOBIN 15.1 g/dl (14.0-17.9); LYMPHOCYTES # (AUTO) 1.7 X10'3 (1.1-4.8); LYMPHOCYTES % (AUTO) 17.2 % (21-51); MEAN CORPUSCULAR HEMOGLOBIN 30.5 PG (27.0-31.0); MEAN CORPUSCULAR HGB CONC 34.6 g/dL (33.0-36.5); MEAN CORPUSCULAR VOLUME 88.2 FL (78-98); MEAN PLATELET VOLUME 8.1 FL (7.4-10.4); MONOCYTES # (AUTO) 1.1 X10'3 (0-0.9); NEUTROPHILS # (AUTO) 6.5 X10'3 (1.8-7.7); NEUTROPHILS % (AUTO) 65.7 % (42-75); PLATELET COUNT 222 X10'3 (140-440); RED BLOOD COUNT 4.94 X10'6 (4.70-6.10); RED CELL DISTRIBUTION WIDTH 14.1 % (11.5-14.5); WHITE BLOOD COUNT 9.8 X10'3 (4.5-11.0)
[2022-02-23] MEDS: sennosides/docusate sodium tablet PO SCH ×2 (07:45→20:19)
[2022-02-23] MEDS: lactobacillus rhamnosus 10,000 MMU CELLS/CAPSULE PO SCH ×3 (07:45→17:33)
[2022-02-23] MEDS: aspirin 81mg tab.chew PO SCH (07:45)
[2022-02-23] MEDS: pantoprazole 40mg Tablet.DR PO SCH (07:45)
[2022-02-23] MEDS: bumetanide 1mg tablet PO SCH (07:46)
[2022-02-23] MEDS: folic acid/vitamin B complex w/vitamin C 0.8mg tablet PO SCH (07:46)
[2022-02-23] MEDS: ALPRAZolam 0.5mg tablet PO SCH ×3 (07:46→20:18)
[2022-02-23] MEDS: lisinopril 5mg tablet PO SCH (07:47)
[2022-02-23] MEDS: clopidogrel 75mg tablet PO SCH (07:48)
[2022-02-23] MEDS: magnesium Cl slow-release 64mg tablet PO SCH ×2 (07:48→20:17)
[2022-02-23] MEDS: allopurinol 100mg tablet PO SCH ×2 (07:49→20:17)
[2022-02-23] MEDS: metoprolol succinate 25mg (24-HOUR) SR. Tablet PO SCH ×2 (07:50→20:16)
[2022-02-23] MEDS: lisinopril 10 MG tablet PO SCH (10:45)
[2022-02-23 11:00] VITALS: BP 96/61
[2022-02-23 18:00] VITALS: BP 124/81
[2022-02-23] MEDS: atorvastatin 10mg tablet PO SCH (20:19)
[2022-02-23] MEDS: HYDROcodone/acetaminophen 10/325mg tab PO PRN (20:27)
[2022-02-23 22:00] VITALS: BP 114/66
[2022-02-24 02:00] VITALS: BP 121/80
[2022-02-24 06:00] VITALS: BP 116/64
[2022-02-24 06:24] LABS: BASOPHILS # (AUTO) 0.1 X10'3 (0-0.2); BASOPHILS % (AUTO) 0.7 % (0-1); EOSINOPHILS # (AUTO) 0.5 X10'3 (0-0.9); EOSINOPHILS % (AUTO) 4.5 % (0-6); HEMATOCRIT 43.8 % (42.0-52.0); HEMOGLOBIN 15.2 g/dl (14.0-17.9); LYMPHOCYTES # (AUTO) 1.8 X10'3 (1.1-4.8); LYMPHOCYTES % (AUTO) 17.7 % (21-51); MEAN CORPUSCULAR HEMOGLOBIN 30.4 PG (27.0-31.0); MEAN CORPUSCULAR HGB CONC 34.6 g/dL (33.0-36.5); MONOCYTES # (AUTO) 1.2 X10'3 (0-0.9); MONOCYTES % (AUTO) 11.7 % (2-12); NEUTROPHILS # (AUTO) 6.8 X10'3 (1.8-7.7); NEUTROPHILS % (AUTO) 65.4 % (42-75); PLATELET COUNT 286 X10'3 (140-440); RED BLOOD COUNT 4.98 X10'6 (4.70-6.10); RED CELL DISTRIBUTION WIDTH 14.2 % (11.5-14.5); WHITE BLOOD COUNT 10.4 X10'3 (4.5-11.0)
[2022-02-24] MEDS: oxyCODONE/APAP 5-325mg tablet PO PRN ×3 (06:38→15:37)
[2022-02-24 07:00] LABS: ALBUMIN 2.9 G/DL (3.4-5.0); ANION GAP 9 (8-16); BLOOD UREA NITROGEN 25 MG/DL (7-18); BUN/CREATININE RATIO 20.3 (5.4-32.0); CALCIUM 9.1 MG/DL (8.5-10.1); CHLORIDE 94 MMOL/L (99-107); CREATININE 1.23 MG/DL (0.60-1.10); GLUCOSE 109 MG/DL (70-104); POTASSIUM 4.1 MMOL/L (3.5-5.1); SODIUM 134 MMOL/L (135-145); TOTAL CARBON DIOXIDE 30.8 MMOL/L (24-32); eGFR 60 ML/MIN
[2022-02-24] MEDS ORDERED: bumetanide 1mg tablet PO SCH (08:00)
--- NOTE | 2022-02-24 08:34 | NUR ---
Reassessment: Pt now s/p CABG with some decline in PO intake compared to before the procedure. Now w/ mostly 0-25% intake of meals. Selvin Smoothies verified today, pending PO intake. If pt continues w/ poor meal intake may consider additional ONS. LBM 02/19 receiving routine senna. Will continue to monitor. Recommendations 1. Continue NCS diet; double protein TIDWM per pt request 2. peach vs strawberry-banana Selvin smoothie BIDBL; pending PA verification in EMR 3. routine bowel care 4. weekly scaled wts Addendum: 02/24/22 at [address] Amended: Links added.
[2022-02-24] MEDS: metoprolol succinate 25mg (24-HOUR) SR. Tablet PO SCH (08:46)
[2022-02-24] MEDS: clopidogrel 75mg tablet PO SCH (08:47)
[2022-02-24] MEDS: lisinopril 10 MG tablet PO SCH (08:47)
[2022-02-24] MEDS: folic acid/vitamin B complex w/vitamin C 0.8mg tablet PO SCH (08:47)
[2022-02-24] MEDS: magnesium Cl slow-release 64mg tablet PO SCH (08:47)
[2022-02-24] MEDS: allopurinol 100mg tablet PO SCH (08:47)
[2022-02-24] MEDS: lactobacillus rhamnosus 10,000 MMU CELLS/CAPSULE PO SCH ×2 (08:47→11:39)
[2022-02-24] MEDS: aspirin 81mg tab.chew PO SCH (08:47)
[2022-02-24] MEDS: ALPRAZolam 0.5mg tablet PO SCH ×2 (08:47→12:14)
[2022-02-24] MEDS: pantoprazole 40mg Tablet.DR PO SCH (08:47)
[2022-02-24] MEDS: sennosides/docusate sodium tablet PO SCH (08:47)
[2022-02-24] MEDS ORDERED: ASPI81TA53 PO (09:25)
[2022-02-24] MEDS ORDERED: HYDR-3972 PO (09:25)
[2022-02-24] MEDS ORDERED: METO-395 PO (09:25)
[2022-02-24] MEDS ORDERED: CLOP75TA34 PO (09:25)
[2022-02-24] MEDS ORDERED: LISI10TA27 PO (09:25)
[2022-02-24] MEDS ORDERED: ALPR-623 PO (09:38)
[2022-02-24 15:00] VITALS: BP 105/57
--- NOTE | 2022-02-24 15:44 | NUR ---
Patient cleared for discharge. Patient was able to walk 150ft on room air and his o2 sats ranged from 93-97%. Patient and verbalized understanding of discharge instructions and prescriptions. Patient's IV and tele discontinued.
== END 2022-02-24 15:44 | disposition home or self-care (01) | DRG 233 ==
LOC: ER 11:18 → ED HOLD 14:09 → PCU 3S 02-15 08:00 → CICU 2S 02-20 08:29 → PCU 3S 02-22 22:20
PROVIDERS: ADMIT Internal Medicine; ATTEND Internal Medicine
PROC: 4A023N7 Measurement of Cardiac Sampling and Pressure, Left Heart, Percutaneous Approach (ICD-10-PCS; principal; 2022-02-15)
PROC: B2111ZZ Fluoroscopy of Multiple Coronary Arteries using Low Osmolar Contrast (ICD-10-PCS; 2022-02-15)
PROC: 4A033BC Measurement of Arterial Pressure, Coronary, Percutaneous Approach (ICD-10-PCS; 2022-02-15)
PROC: B41F1ZZ Fluoroscopy of Right Lower Extremity Arteries using Low Osmolar Contrast (ICD-10-PCS; 2022-02-15)
PROC: 5A09357 Assistance with Respiratory Ventilation, Less than 24 Consecutive Hours, Continuous Positive Airway Pressure (ICD-10-PCS; 2022-02-18)
PROC: 02100Z9 Bypass Coronary Artery, One Artery from Left Internal Mammary, Open Approach (ICD-10-PCS; 2022-02-20)
PROC: 021209W Bypass Coronary Artery, Three Arteries from Aorta with Autologous Venous Tissue, Open Approach (ICD-10-PCS; 2022-02-20)
PROC: 06BP4ZZ Excision of Right Saphenous Vein, Percutaneous Endoscopic Approach (ICD-10-PCS; 2022-02-20)
PROC: B24BZZ4 Ultrasonography of Heart with Aorta, Transesophageal (ICD-10-PCS; 2022-02-20)
PROC: 5A0935A Assistance with Respiratory Ventilation, Less than 24 Consecutive Hours, High Flow/Velocity Cannula (ICD-10-PCS; 2022-02-20)
PROC: 5A09357 Assistance with Respiratory Ventilation, Less than 24 Consecutive Hours, Continuous Positive Airway Pressure (ICD-10-PCS; 2022-02-21)
PROC: 5A0935A Assistance with Respiratory Ventilation, Less than 24 Consecutive Hours, High Flow/Velocity Cannula (ICD-10-PCS; 2022-02-21)
PROC: 5A09357 Assistance with Respiratory Ventilation, Less than 24 Consecutive Hours, Continuous Positive Airway Pressure (ICD-10-PCS; 2022-02-23)
DX: I25.110 Atherosclerotic heart disease of native coronary artery with unstable angina pectoris (principal); I21.4 Non-ST elevation (NSTEMI) myocardial infarction; R44.3 Hallucinations, unspecified; E78.00 Pure hypercholesterolemia, unspecified; F41.0 Panic disorder [episodic paroxysmal anxiety]; I11.9 Hypertensive heart disease without heart failure; M10.9 Gout, unspecified; F43.9 Reaction to severe stress, unspecified; I25.2 Old myocardial infarction; Z82.3 Family history of stroke; Z82.49 Family history of ischemic heart disease and other diseases of the circulatory system; Z87.891 Personal history of nicotine dependence; Z95.5 Presence of coronary angioplasty implant and graft; T39.1X5A Adverse effect of 4-Aminophenol derivatives, initial encounter; Y92.230 Patient room in hospital as the place of occurrence of the external cause; Z79.899 Other long term (current) drug therapy; Z73.1 Type A behavior pattern
CPT/HCPCS: 93306; 93312; 93325; 93458; 93571; 96365; 99285; Z7506; Z7508; 36415; 36600; 71045; 80048; 80053; 80061; 82330; 82435; 82800; 82803; 82947; 82948; 83036; 83735; 83880; 84100; 84132; 84295; 84484; 85018; 85025; 85347; 85384; 85610; 85730; 86885; 86900; 86901; 86920; 93005; 93880; 93970; 94002; 94010; 94660; 94760; 97110; 97116; 97162; 97530; 99152; 99153; A4333; A4615; A4618; A4620; A5120; A6243; A6258; A6402; A6446; A6449; A7000; A7048; C1751; C1760; C1769; C1894; G0378; J0153; J0171; J0690; J1644; J1815; J1885; J1940; J2060; J2250; J2270; J2370; J2405; J2440; J2795; J3010; J3370; J3475; J3480; J3490; J7030; J7040; J7050; J7120; P9047; Q9967

== ENCOUNTER 2022-03-26 15:15 | Outpatient (CLI) | payer OTHER ==
[~2022-03-26 15:15] MED LIST changes: +ACET-2 PO; +ALPR-623 PO; +ASPI81TA53 PO; +CLOP75TA34 PO; +GABA100C PO; +HYDR-3972 PO; +LEVO-65 PO; +LISI10TA27 PO; +METO-395 PO; +ROSU40TA PO; -heparin 10,000 units/1 ML INJ ONE; -papaverine 30 mg/ml 2ml inj. ONE
== END 2022-03-26 23:59 | disposition home or self-care (01) ==
LOC: LAB SPEC 15:15
PROVIDERS: ATTEND Thoracic Surgery (Cardiothoracic Vascular Surgery)
DX: T81.40XA Infection following a procedure, unspecified, initial encounter (principal)
CPT/HCPCS: 87070; 87075

== ENCOUNTER 2022-03-29 05:58 | Inpatient (IN) | payer OTHER ==
[2022-03-29] VITALS (29 sets, daily range): BP systolic 69–124; BP diastolic 39–70
[~2022-03-29] VITALS: Ht 180.3 cm; Wt 82.2 kg
[~2022-03-29 05:58] MED LIST changes: -ACET-2 PO; -ALPR-623 PO; +ASPI81TA52 PO; -ASPI81TA53 PO; +CLOP75TA33 PO; -CLOP75TA34 PO; +DOCUMENT DATE & TIME OF BETA-BLOCKER PO ONE; +GABA-530 PO; -GABA100C PO; -HYDR-3972 PO; +LOP12.5T PO; -METO-395 PO; +ROSU10TA2 PO; -ROSU40TA PO; +[UNRECOGNIZED DRUG - CODE] PO; +ceFAZolin inj. 2,000 MG in dextrose 5%-water 100 ML IV ONE; +famotidine 20mg tablet PO ONE; +vancomycin 1,500 MG in NS 300ml IV soln IV ONE
[2022-03-29] MEDS ORDERED: BUPIVAcaine 0.5% inj/PF 30 ML ONE (06:50)
[2022-03-29] MEDS ORDERED: LIDOcaine 1% 30ml preserv. free vial ONE (06:50)
[2022-03-29] MEDS ORDERED: epiNEPHrine 1 mg/ml inj ONE (07:02)
[2022-03-29] MEDS ORDERED: BUPIVAcaine 0.5% inj/PF 30 ml vial IJ ONE (07:46)
[2022-03-29] MEDS: ringers solution, lacted 1,000 ML IV SCH (07:49)
[2022-03-29] MEDS ORDERED: fentaNYL/PF 50MCG/1 ML 2ML syringe ONE (07:54)
[2022-03-29] MEDS ORDERED: midazolam 1 mg/ML 2ml injection ONE (07:54)
[2022-03-29 07:55] LABS: BASOPHILS # (AUTO) 0.1 X10'3 (0-0.2); BASOPHILS % (AUTO) 0.8 % (0-1); EOSINOPHILS # (AUTO) 0.4 X10'3 (0-0.9); EOSINOPHILS % (AUTO) 4.9 % (0-6); LYMPHOCYTES # (AUTO) 1.8 X10'3 (1.1-4.8); LYMPHOCYTES % (AUTO) 21.6 % (21-51); MEAN CORPUSCULAR HEMOGLOBIN 28.5 PG (27.0-31.0); MEAN CORPUSCULAR HGB CONC 32.5 g/dL (33.0-36.5); MEAN CORPUSCULAR VOLUME 87.7 FL (78-98); MEAN PLATELET VOLUME 6.9 FL (7.4-10.4); MONOCYTES # (AUTO) 0.8 X10'3 (0-0.9); MONOCYTES % (AUTO) 9.5 % (2-12); NEUTROPHILS # (AUTO) 5.3 X10'3 (1.8-7.7); NEUTROPHILS % (AUTO) 63.2 % (42-75); PRE OP HEMATOCRIT 41.6 % (42.0-52.0); PRE OP HEMOGLOBIN 13.5 g/dL (14.0-17.9); PRE OP PLATELET COUNT 394 X10'3 (140-440); RED BLOOD COUNT 4.75 X10'6 (4.70-6.10); RED CELL DISTRIBUTION WIDTH 14.1 % (11.5-14.5)
[2022-03-29] MEDS ORDERED: dexamethasone sod phosphate 4mg/ml inj. ONE (07:56)
[2022-03-29] MEDS ORDERED: neostigmine methylsulfate 1 MG/ML 10ml vial ONE (07:56)
[2022-03-29] MEDS ORDERED: glycopyrrolate 0.2mg/ml inj ONE (07:56)
[2022-03-29] MEDS ORDERED: rocuronium 10mg/ml inj IV ONE (07:56)
[2022-03-29] MEDS ORDERED: LIDOcaine 2% (20mg/ml) 5ml vial ONE (07:56)
[2022-03-29] MEDS ORDERED: propofol inj 20 ML IV ONE (07:56)
[2022-03-29] MEDS ORDERED: ondansetron/PF 4mg/2ml inj ONE (07:56)
[2022-03-29 08:04] LABS: ALANINE AMINOTRANSFERASE 66 U/L (12-78); ALBUMIN 2.8 G/DL (3.4-5.0); ALBUMIN/GLOBULIN RATIO 0.6 (1.1-1.5); ALKALINE PHOSPHATASE 148 IU/L (46-116); ANION GAP 4 (8-16); ASPARTATE AMINO TRANSFERASE 37 U/L (10-37); BILIRUBIN,TOTAL 0.4 MG/DL (0.1-1.0); BLOOD UREA NITROGEN 20 MG/DL (7-18); BUN/CREATININE RATIO 17.5 (5.4-32.0); CALCIUM 9.2 MG/DL (8.5-10.1); CHLORIDE 103 MMOL/L (99-107); CREATININE 1.14 MG/DL (0.60-1.10); GLUCOSE 107 MG/DL (70-104); POTASSIUM 4.6 MMOL/L (3.5-5.1); SODIUM 137 MMOL/L (135-145); TOTAL CARBON DIOXIDE 30.4 MMOL/L (24-32); TOTAL PROTEIN 7.3 G/DL (6.4-8.2); eGFR 66 ML/MIN
[2022-03-29] MEDS ORDERED: labetalol 20mg/4ml (5mg/ml) syringe IV PRN (08:25)
[2022-03-29] MEDS ORDERED: morphine 4 MG/ML inj SYRINge IV PRN (08:25)
[2022-03-29] MEDS ORDERED: fentaNYL/PF 50MCG/1 ML 2ML syringe IV PRN ×2 (08:25)
[2022-03-29] MEDS ORDERED: morphine 2 MG/ML inj. syringe IV PRN (08:25)
[2022-03-29] MEDS ORDERED: ondansetron/PF 4mg/2ml inj IV PRN (08:25)
[2022-03-29] MEDS ORDERED: hydrALAZINE 20mg/ml inj. IV PRN (08:25)
[2022-03-29] MEDS ORDERED: ringers solution, lacted 1,000 ML IV SCH (08:25)
[2022-03-29] MEDS ORDERED: vancomycin 1,000mg inj ONE (08:34)
[2022-03-29] MEDS ORDERED: albuterol 2.5 MG/3 ML nebule NEB PRN (09:05)
[2022-03-29] MEDS ORDERED: metoclopramide 5 mg/ml inj IV PRN (09:05)
[2022-03-29] MEDS ORDERED: albumin (Human) 5% 250ml 250 ML IV ONE (09:10)
[2022-03-29] MEDS ORDERED: ALBUMIN HUMAN 5% IV ONE (09:12)
--- NOTE | 2022-03-29 09:15 | NUR ---
Received from OR via HOSPITAL BED, accompanied by Anesthesiologist KRISTEL and report given by Anesthesiolgist. PT PLACED ON BEDSIDE MONITOR, PT IS HYPOTENSIVE, ANESTHESIA IS AWARE AND ORDER RECEIVED TO ADMINISTER BOTTLE OF 5% ALBUMIN. PT IN SR WITH RATE IN 60'S. PT IS GROGGY, RESPONDS TO VERBAL STIMULI, NODS HEAD APPROPRIATELY. PT HAS ORAL AIRWAY IN D/T BEING GROGGY. PT RECEIVING 10L O2 TO MASK AND TOLERATING WELL WITH O2 SAT > 96%. PT RR IS >11. PT HAS 20G PIV TO LEFT WRIST WITH LR INFUSING. PT HAS WV TO STERNUM THAT IS CDI, RUNNING @ 125mmHG, SCANT SEROUS DRAINAGE NOTED IN TUBING. PT IS RESTING WITH NO S/S DISCOMFORT NOTED AT THIS TIME. WILL CONTINUE TO ASSESS
--- NOTE | 2022-03-29 12:13 | NUR ---
REPORT CALLED TO ISAURA WINN ON TELE FLOOR. PATIENT TAKEN TO ROOM WITH ALL BELONGINGS AND HOOKED UP TO MONITORS IN ROOM, PT ON TELE #7 AND GIVEN CALL LIGHT, REPORT GIVEN TO RN WHO HAS TAKEN OVER PATIENT CARE.
--- NOTE | 2022-03-29 12:20 | NUR ---
Received report from Lo WINN. Pt arrived to room 3011A via hospital bed, VSS and post op vitals initiated, no c/o pain at this time. Will continue care.
[2022-03-29] MEDS: HYDROcodone/acetaminophen 10/325mg tab PO PRN ×2 (13:51→18:59)
[2022-03-29] MEDS ORDERED: piperacillin/tazo 3.375gm/50ml 50 ML IV SCH ×2 (16:00→21:51)
[2022-03-29] MEDS: gabapentin 100mg capsule PO SCH (16:15)
[2022-03-29] MEDS: ceFAZolin inj. 1,000 MG in dextrose 5%-water 50ml 50 ML IV SCH ×2 (16:15→23:46)
[2022-03-29] MEDS ORDERED: glucagon, human recombinant 1mg kit SUBCUT PRN (17:20)
[2022-03-29] MEDS ORDERED: DEXTROSE 15 GM of carb/4 tabs (each vial/BOTTLE has 4 tablets) PO PRN ×2 (17:20)
[2022-03-29] MEDS ORDERED: MESSAGE TO PHARMACY PO ONE (17:20)
[2022-03-29] MEDS ORDERED: insulin Lispro (HumaLOG) vial - multi-dose SQ SCH (17:20)
[2022-03-29] MEDS: metoprolol tartrate 12.5mg (1/2 tablet) PO SCH (20:00)
[2022-03-29] MEDS: lisinopril 10 MG tablet PO SCH (20:42)
--- NOTE | 2022-03-29 20:55 | NUR ---
PAGER ID: [phone] MESSAGE: Pt Jem Kamara RM 3011A Pt pain is uncontrolled by norco can we get order for breakthrough? Estella STEEL [phone]
[2022-03-29] MEDS: insulin glargine (Lantus) pen - multi-dose SQ SCH (21:13)
[2022-03-29] MEDS: vancomycin/NS 1 GM ADD-VANTAGE 250 ML IV SCH (21:30)
--- NOTE | 2022-03-29 22:19 | NUR ---
Dr Gamboa contacted for breakthrough pain management, no answer, message left.
--- NOTE | 2022-03-29 22:25 | NUR ---
Reviewed Estella Dietrich LVN documentation assessment. Agreed with findings.
[2022-03-29] MEDS: temazepam 15mg capsule PO PRN (23:17)
[2022-03-29] MEDS: ketorolac trometh. 30mg/ml inj. IV PRN (23:18)
[2022-03-30] VITALS: BP 98/66
[2022-03-30 04:00] VITALS: BP 114/65
[2022-03-30 06:00] VITALS: BP 125/64
[2022-03-30] MEDS ORDERED: piperacillin/tazo 3.375gm/50ml 50 ML IV SCH (06:00)
--- NOTE | 2022-03-30 06:28 | NUR ---
Problems reprioritized. Patient report given, questions answered & plan of care reviewed with Gloria WINN.
--- NOTE | 2022-03-30 06:46 | NUR ---
Patient in room PCU 3011. I have received report from CEDRIC DELAROSA, and had the opportunity to ask questions and assume patient care.
[2022-03-30 07:24] LABS: BASOPHILS % (AUTO) 0.4 % (0-1); EOSINOPHILS # (AUTO) 0.1 X10'3 (0-0.9); EOSINOPHILS % (AUTO) 0.7 % (0-6); HEMATOCRIT 33.7 % (42.0-52.0); HEMOGLOBIN 11.6 g/dl (14.0-17.9); LYMPHOCYTES # (AUTO) 1.8 X10'3 (1.1-4.8); LYMPHOCYTES % (AUTO) 23.2 % (21-51); MEAN CORPUSCULAR HEMOGLOBIN 29.7 PG (27.0-31.0); MEAN CORPUSCULAR HGB CONC 34.3 g/dL (33.0-36.5); MEAN CORPUSCULAR VOLUME 86.6 FL (78-98); MONOCYTES # (AUTO) 0.6 X10'3 (0-0.9); MONOCYTES % (AUTO) 7.9 % (2-12); NEUTROPHILS # (AUTO) 5.3 X10'3 (1.8-7.7); NEUTROPHILS % (AUTO) 67.8 % (42-75); PLATELET COUNT 304 X10'3 (140-440); RED BLOOD COUNT 3.89 X10'6 (4.70-6.10); RED CELL DISTRIBUTION WIDTH 13.9 % (11.5-14.5); WHITE BLOOD COUNT 7.9 X10'3 (4.5-11.0)
[2022-03-30 07:51] LABS: ALBUMIN 2.6 G/DL (3.4-5.0); ANION GAP 9 (8-16); BLOOD UREA NITROGEN 23 MG/DL (7-18); BUN/CREATININE RATIO 21.9 (5.4-32.0); CALCIUM 8.8 MG/DL (8.5-10.1); CHLORIDE 104 MMOL/L (99-107); CREATININE 1.05 MG/DL (0.60-1.10); GLUCOSE 106 MG/DL (70-104); POTASSIUM 3.5 MMOL/L (3.5-5.1); SODIUM 138 MMOL/L (135-145); TOTAL CARBON DIOXIDE 24.8 MMOL/L (24-32); eGFR 72 ML/MIN
[2022-03-30] MEDS: vancomycin/NS 1 GM ADD-VANTAGE 250 ML IV SCH ×2 (07:58→20:35)
[2022-03-30] MEDS: atorvastatin 20mg tablet PO SCH (08:01)
[2022-03-30] MEDS: gabapentin 100mg capsule PO SCH ×3 (08:02→16:09)
[2022-03-30] MEDS: clopidogrel 75mg tablet PO SCH (08:02)
[2022-03-30] MEDS: aspirin 81mg, enteric-coated 1 TAB TABLET.DR PO SCH (08:02)
[2022-03-30] MEDS: metoprolol tartrate 12.5mg (1/2 tablet) PO SCH ×2 (08:03→20:22)
[2022-03-30] MEDS: HYDROcodone/acetaminophen 10/325mg tab PO PRN ×2 (08:03→14:16)
[2022-03-30] MEDS: ceFAZolin inj. 1,000 MG in dextrose 5%-water 50ml 50 ML IV SCH (10:05)
[2022-03-30] MEDS: ketorolac trometh. 30mg/ml inj. IV PRN ×3 (10:11→23:00)
[2022-03-30 11:37] VITALS: BP 100/58
[2022-03-30 14:18] VITALS: BP 108/58
[2022-03-30 18:00] VITALS: BP 126/69
--- NOTE | 2022-03-30 18:09 | NUR ---
Problems reprioritized. Patient report given, questions answered & plan of care reviewed with TATUM WHEELER.
--- NOTE | 2022-03-30 18:10 | NUR ---
Patient in room PCU 3011. I have received report from Gloria WINN and had the opportunity to ask questions and assume patient care.
[2022-03-30] MEDS ORDERED: VANCOMYCIN LEVEL IV ONE (19:30)
[2022-03-30] MEDS: ringers solution, lacted 1,000 ML IV SCH (20:14)
[2022-03-30] MEDS: insulin glargine (Lantus) pen - multi-dose SQ SCH (21:00)
[2022-03-30] MEDS: lisinopril 10 MG tablet PO SCH (22:04)
[2022-03-30] MEDS: ondansetron/PF 4mg/2ml inj IV PRN (22:53)
[2022-03-31] MEDS: gabapentin 100mg capsule PO SCH ×3 (01:36→15:28)
--- NOTE | 2022-03-31 01:41 | NUR ---
I agree with Jana INDUSTRIAL ECOLOGY TECHNICIAN assessment except where I documented my findings.
[2022-03-31 06:18] LABS: BASOPHILS # (AUTO) 0.1 X10'3 (0-0.2); BASOPHILS % (AUTO) 0.9 % (0-1); EOSINOPHILS # (AUTO) 0.4 X10'3 (0-0.9); EOSINOPHILS % (AUTO) 6.3 % (0-6); HEMATOCRIT 35.9 % (42.0-52.0); HEMOGLOBIN 11.8 g/dl (14.0-17.9); LYMPHOCYTES # (AUTO) 2.1 X10'3 (1.1-4.8); MEAN CORPUSCULAR HEMOGLOBIN 28.7 PG (27.0-31.0); MEAN CORPUSCULAR HGB CONC 32.9 g/dL (33.0-36.5); MEAN PLATELET VOLUME 7.1 FL (7.4-10.4); MONOCYTES # (AUTO) 0.6 X10'3 (0-0.9); MONOCYTES % (AUTO) 9.4 % (2-12); NEUTROPHILS # (AUTO) 3.5 X10'3 (1.8-7.7); NEUTROPHILS % (AUTO) 52.4 % (42-75); PLATELET COUNT 295 X10'3 (140-440); RED BLOOD COUNT 4.12 X10'6 (4.70-6.10); RED CELL DISTRIBUTION WIDTH 14.3 % (11.5-14.5); WHITE BLOOD COUNT 6.7 X10'3 (4.5-11.0)
[2022-03-31 06:20] LABS: ALBUMIN 2.6 G/DL (3.4-5.0); ANION GAP 8 (8-16); BLOOD UREA NITROGEN 21 MG/DL (7-18); BUN/CREATININE RATIO 22.1 (5.4-32.0); CALCIUM 8.7 MG/DL (8.5-10.1); CHLORIDE 106 MMOL/L (99-107); CREATININE 0.95 MG/DL (0.60-1.10); GLUCOSE 91 MG/DL (70-104); POTASSIUM 3.9 MMOL/L (3.5-5.1); SODIUM 141 MMOL/L (135-145); eGFR 81 ML/MIN
--- NOTE | 2022-03-31 06:37 | NUR ---
Problems reprioritized. Patient report given, questions answered & plan of care reviewed with Jazmin WINN.
[2022-03-31] MEDS: VANCOmycin 1250MG/NS 250ml Bag 250 ML IV SCH ×2 (08:00→20:22)
[2022-03-31] MEDS: atorvastatin 20mg tablet PO SCH (08:39)
[2022-03-31] MEDS: metoprolol tartrate 25mg tablet PO SCH ×2 (08:40→20:08)
[2022-03-31] MEDS: aspirin 81mg, enteric-coated 1 TAB TABLET.DR PO SCH (08:40)
[2022-03-31] MEDS: clopidogrel 75mg tablet PO SCH (08:40)
[2022-03-31] MEDS: Dakins solution (1/4 strength) 473ml solution TP SCH (08:41)
[2022-03-31] MEDS: levoFLOXACIN-Levaquin 750MG/D5 150 ML IV SCH (08:41)
[2022-03-31] MEDS: ketorolac trometh. 30mg/ml inj. IV PRN (08:54)
[2022-03-31] MEDS: HYDROcodone/acetaminophen 10/325mg tab PO PRN ×3 (08:54→20:13)
[2022-03-31 13:00] VITALS: BP 112/69
--- NOTE | 2022-03-31 13:03 | NUR ---
accuchecks changed to every morning and at bedtime Addendum: 03/31/22 at 1304 by Jazmin Kothari RN Amended: Links added.
--- NOTE | 2022-03-31 14:00 | NUR ---
PATIENT AMBULATED AROUND THE DOTY AND TOLERATED IT WELL. HE STATED THAT HE GOT "A LITTLE TIRED" AT THE END OF THE WALK.
[2022-03-31] MEDS: pantoprazole 40MG/NS 100ML BAG 100 ML IV SCH (14:17)
[2022-03-31] MEDS: lactobacillus acidophilus cap PO SCH ×2 (14:17→17:48)
[2022-03-31] MEDS: ketorolac tromethamine 15mg/ml inj. IV SCH ×2 (14:18→20:05)
[2022-03-31 18:00] VITALS: BP 131/75
--- NOTE | 2022-03-31 18:30 | NUR ---
Patient in room PCU 3011. I have received report from TATUM Wu and had the opportunity to ask questions and assume patient care. Patient sitting up in bed visiting with , no concerns at this time. I will continue to monitor.
[2022-03-31] MEDS: lisinopril 10 MG tablet PO SCH (20:08)
[2022-03-31] MEDS: heparin, porcine 5000 units/ml vial SQ SCH (20:10)
[2022-03-31] MEDS: temazepam 15mg capsule PO PRN (20:15)
[2022-03-31] MEDS: ondansetron/PF 4mg/2ml inj IV PRN (20:15)
[2022-03-31] MEDS: insulin glargine (Lantus) pen - multi-dose SQ SCH (21:00)
[2022-03-31 22:00] VITALS: BP 101/55
[2022-04-01] MEDS: HYDROcodone/acetaminophen 10/325mg tab PO PRN ×4 (00:32→18:07)
[2022-04-01] MEDS: gabapentin 100mg capsule PO SCH ×3 (00:32→18:06)
[2022-04-01 02:00] VITALS: BP 93/55
[2022-04-01] MEDS: ketorolac tromethamine 15mg/ml inj. IV SCH ×4 (02:00→18:06)
[2022-04-01 06:00] VITALS: BP 111/72
--- NOTE | 2022-04-01 06:35 | NUR ---
Problems reprioritized. Patient report given, questions answered & plan of care reviewed with TATUM Nath.
[2022-04-01 07:03] LABS: BASOPHILS % (AUTO) 0.6 % (0-1); EOSINOPHILS # (AUTO) 0.5 X10'3 (0-0.9); EOSINOPHILS % (AUTO) 8.3 % (0-6); HEMATOCRIT 35.8 % (42.0-52.0); HEMOGLOBIN 11.6 g/dl (14.0-17.9); LYMPHOCYTES % (AUTO) 30.3 % (21-51); MEAN CORPUSCULAR HEMOGLOBIN 28.6 PG (27.0-31.0); MEAN CORPUSCULAR HGB CONC 32.5 g/dL (33.0-36.5); MEAN CORPUSCULAR VOLUME 87.9 FL (78-98); MEAN PLATELET VOLUME 6.9 FL (7.4-10.4); MONOCYTES # (AUTO) 0.6 X10'3 (0-0.9); MONOCYTES % (AUTO) 10.1 % (2-12); NEUTROPHILS # (AUTO) 3.3 X10'3 (1.8-7.7); NEUTROPHILS % (AUTO) 50.7 % (42-75); PLATELET COUNT 279 X10'3 (140-440); RED BLOOD COUNT 4.07 X10'6 (4.70-6.10); RED CELL DISTRIBUTION WIDTH 14.3 % (11.5-14.5); WHITE BLOOD COUNT 6.4 X10'3 (4.5-11.0)
[2022-04-01 07:10] LABS: ALBUMIN 2.5 G/DL (3.4-5.0); ANION GAP 7 (8-16); BLOOD UREA NITROGEN 18 MG/DL (7-18); BUN/CREATININE RATIO 17.8 (5.4-32.0); CALCIUM 8.7 MG/DL (8.5-10.1); CHLORIDE 102 MMOL/L (99-107); CREATININE 1.01 MG/DL (0.60-1.10); GLUCOSE 91 MG/DL (70-104); POTASSIUM 4.1 MMOL/L (3.5-5.1); SODIUM 140 MMOL/L (135-145); eGFR 76 ML/MIN
[2022-04-01] MEDS: atorvastatin 20mg tablet PO SCH (08:00)
[2022-04-01] MEDS: heparin, porcine 5000 units/ml vial SQ SCH (08:00)
[2022-04-01] MEDS: levoFLOXACIN-Levaquin 750MG/D5 150 ML IV SCH (09:09)
[2022-04-01] MEDS: aspirin 81mg, enteric-coated 1 TAB TABLET.DR PO SCH (09:13)
[2022-04-01] MEDS: clopidogrel 75mg tablet PO SCH (09:16)
[2022-04-01] MEDS: lactobacillus acidophilus cap PO SCH ×2 (09:16→13:07)
[2022-04-01] MEDS: metoprolol tartrate 25mg tablet PO SCH ×2 (09:21→09:31)
[2022-04-01] MEDS: pantoprazole 40MG/NS 100ML BAG 100 ML IV SCH (09:25)
[2022-04-01 11:00] VITALS: BP 115/68
--- NOTE | 2022-04-01 13:48 | NUR ---
PRESSURE ULCER EDUCATION: DEFINITION: A pressure ulcer is an area of skin that breaks down when you stay in one position too long. The constant pressure against the skin reduces the blood flow to that area and the affected tissue dies. CAUSES: "Being bedridden or in a wheelchair "Fragile skin "Having a chronic condition, such as diabetes or vascular disease "Inability to move certain parts of your body without assistance "Older age "Incontinence of urine or stool SYMPTOMS: "A reddened area that DOES NOT turn white when pressed on - this can be the beginning of a pressure ulcer "A blister, deep sore or a crater - these can be advanced pressure ulcers FIRST AID: "Relieve the pressure on this area "Keep the area clean and dry "Call your primary doctor if you see any of the above symptoms "DO NOT massage the area "DO NOT use a donut shaped or ring shaped pillow- these actually interfere with the blood flow and cause complications PREVENTION: "Check for pressure ulcers everyday "Change position at least every two hours to relieve pressure "Use items that help relieve pressure- pillows, sheepskin, foam padding, and powders. "Keep skin clean and dry "Eat healthy well balanced meals "Exercise daily IF YOU SEE ANY OF THESE SYMPTOMS WHILE IN THE HOSPITAL - TELL YOUR NURSE IMMEDIATELY. IF YOU SEE ANY OF THESE SYMPTOMS WHILE AT HOME OR HAVE ANY QUESTIONS OR CONCERNS ABOUT PRESSURE ULCERS - CALL YOUR PRIMARY DOCTOR IMMEDIATELY. Addendum: 04/01/22 at 1349 by Karla Garcia RN Amended: Links added.
[2022-04-01] MEDS ORDERED: ACET-1059 PO (14:49)
[2022-04-01] MEDS ORDERED: CYCL-1 PO (14:49)
[2022-04-01] MEDS ORDERED: LEVO-65 PO (14:52)
[2022-04-01 19:08] VITALS: BP 107/62
[2022-04-01] MEDS ORDERED: VANCOMYCIN LEVEL IV ONE (19:30)
--- NOTE | 2022-04-01 19:30 | NUR ---
dc instructions given all questions answered.iv dcd,pt mervat pain and no complications noted.prescription called,lito ready.unable to resend prescription called [facility],will take care of it in am,informed .dcd in stable condition per w/c with belongings.
--- NOTE | 2022-04-01 21:30 | NUR ---
Pt stable, d/c'd to home with at approx 1900 per MD order. Pt took all belongings and signed all paperwork.
[2022-04-02] MEDS ORDERED: levoFLOXACIN 750MG TABLET PO SCH (11:00)
== END 2022-04-01 19:30 | disposition home health service (06) | DRG 858 ==
LOC: PAS IN 05:58 → PCU 3S 12:15
PROVIDERS: ADMIT Thoracic Surgery (Cardiothoracic Vascular Surgery); ATTEND Thoracic Surgery (Cardiothoracic Vascular Surgery)
PROC: 0J960ZZ Drainage of Chest Subcutaneous Tissue and Fascia, Open Approach (ICD-10-PCS; 2022-03-29)
PROC: 5A09357 Assistance with Respiratory Ventilation, Less than 24 Consecutive Hours, Continuous Positive Airway Pressure (ICD-10-PCS; 2022-03-29)
PROC: 0PC00ZZ Extirpation of Matter from Sternum, Open Approach (ICD-10-PCS; principal; 2022-03-29 08:00)
PROC: 5A09357 Assistance with Respiratory Ventilation, Less than 24 Consecutive Hours, Continuous Positive Airway Pressure (ICD-10-PCS; 2022-03-30)
DX: T81.41XA Infection following a procedure, superficial incisional surgical site, initial encounter (principal); E78.00 Pure hypercholesterolemia, unspecified; I10 Essential (primary) hypertension; Y83.2 Surgical operation with anastomosis, bypass or graft as the cause of abnormal reaction of the patient, or of later complication, without mention of misadventure at the time of the procedure; G47.30 Sleep apnea, unspecified; I25.10 Atherosclerotic heart disease of native coronary artery without angina pectoris; M54.2 Cervicalgia; M54.9 Dorsalgia, unspecified; Z95.1 Presence of aortocoronary bypass graft; Y92.89 Other specified places as the place of occurrence of the external cause
CPT/HCPCS: Z7506; Z7508; 36415; 80048; 80053; 80202; 82948; 85025; 86885; 86900; 86901; 87070; 87075; 87077; 87102; 87186; 94760; A4618; A6258; A6449; A6550; A7000; C9113; G0378; J0171; J0690; J1100; J1644; J1815; J1885; J1956; J2250; J2405; J2543; J2704; J2710; J3010; J3370; J3490; J7030; J7040; J7060; J7120; P9045; S0020

== ENCOUNTER 2022-07-19 09:22 | Day surgery (SDC) | payer OTHER ==
[2022-07-17 12:00] LABS: CLARITY,URINE CLEAR (Clear); COLOR,URINE YELLOW (Yellow); GLUCOSE, URINE NEGATIVE (Neg); KETONES,URINE NEGATIVE (Neg); LEUKOCYTE ESTERASE ,URINE NEGATIVE (Neg); NITRITES, URINE NEGATIVE (Neg); OCCULT BLOOD,URINE NEGATIVE (Neg); PROTEIN,URINE NEGATIVE (Neg); UROBILINOGEN,URINE 0.2 E.U/dL (0.2-1.0)
[2022-07-17 12:03] LABS: BASOPHILS # (AUTO) 0.1 X10'3 (0-0.2); BASOPHILS % (AUTO) 1.1 % (0-1); EOSINOPHILS # (AUTO) 0.4 X10'3 (0-0.9); EOSINOPHILS % (AUTO) 7.6 % (0-6); LYMPHOCYTES # (AUTO) 1.7 X10'3 (1.1-4.8); MEAN CORPUSCULAR HEMOGLOBIN 30.4 PG (27.0-31.0); MEAN CORPUSCULAR HGB CONC 33.4 g/dL (33.0-36.5); MEAN PLATELET VOLUME 7.5 FL (7.4-10.4); MONOCYTES # (AUTO) 0.5 X10'3 (0-0.9); MONOCYTES % (AUTO) 9.6 % (2-12); NEUTROPHILS # (AUTO) 2.4 X10'3 (1.8-7.7); NEUTROPHILS % (AUTO) 48.7 % (42-75); PRE OP HEMATOCRIT 43.7 % (42.0-52.0); PRE OP HEMOGLOBIN 14.6 g/dL (14.0-17.9); PRE OP PLATELET COUNT 237 X10'3 (140-440); RED CELL DISTRIBUTION WIDTH 14.5 % (11.5-14.5)
[2022-07-17 12:04] LABS: UA COLLECTION TYPE CLN CATCH MIDSTREAM
[2022-07-17 12:19] LABS: PRE OP PROTIME 10.2 SECONDS (9.0-12.0)
[2022-07-17 12:44] LABS: ALBUMIN 3.7 G/DL (3.4-5.0); ALBUMIN/GLOBULIN RATIO 1.1 (1.1-1.5); ALKALINE PHOSPHATASE 89 IU/L (46-116); BLOOD UREA NITROGEN 19 MG/DL (7-18); CALCIUM 8.9 MG/DL (8.5-10.1); CHLORIDE 102 MMOL/L (99-107); CREATININE 0.95 MG/DL (0.60-1.10); PRE OP ALT 41 U/L (30-65); PRE OP ANION GAP 7 (8-16); PRE OP AST 22 U/L (10-37); PRE OP BILIRUB, TOTAL 0.4 MG/DL (0.0-1.0); PRE OP GLUCOSE 138 MG/DL (70-104); PRE OP POTASSIUM 3.9 MMOL/L (3.4-5.1); PRE OP SODIUM 137 MMOL/L (135-145); TOTAL CARBON DIOXIDE 27.7 MMOL/L (24-32); TOTAL PROTEIN 7.2 G/DL (6.4-8.2); eGFR 81 ML/MIN
[2022-07-19] VITALS (7 sets, daily range): BP systolic 105–131; BP diastolic 74–80
[~2022-07-19] VITALS: Ht 180.3 cm; Wt 94.0 kg
[~2022-07-19 09:22] MED LIST changes: +CYCL-1 PO; -LEVO-65 PO; -ceFAZolin inj. 2,000 MG in dextrose 5%-water 100 ML IV ONE; +cefazolin 2gm/D5W 100mL 100 ML IV ONE; +metoprolol tartrate 12.5mg (1/2 tablet) PO ONE; +mupirocin 2% nasal ointment 1gm UD NS ONE; +ringers solution, lacted 1,000 ML IV SCH
[2022-07-19] MEDS ORDERED: metoprolol tartrate 12.5mg (1/2 tablet) PO ONE (11:00)
[2022-07-19] MEDS ORDERED: LIDOcaine 1% 30ml preserv. free vial ONE (12:02)
[2022-07-19] MEDS ORDERED: morphine 2 MG/ML inj. syringe IV PRN (12:30)
[2022-07-19] MEDS ORDERED: meperidine/PF 25mg/ml syringe IV PRN ×3 (12:30)
[2022-07-19] MEDS ORDERED: ringers solution, lacted 1,000 ML IV SCH (12:30)
[2022-07-19] MEDS ORDERED: morphine 4 MG/ML inj SYRINge IV PRN (12:30)
[2022-07-19] MEDS ORDERED: ondansetron/PF 4mg/2ml inj IV PRN (12:30)
[2022-07-19] MEDS ORDERED: proCHLORperazine 10 MG/2 ml inj IV PRN (12:30)
[2022-07-19] MEDS ORDERED: midazolam 1 mg/ML 2ml injection ONE (12:32)
[2022-07-19] MEDS ORDERED: fentaNYL/PF 50MCG/1 ML 2ML syringe ONE (12:32)
[2022-07-19] MEDS ORDERED: propofol inj 20 ML IV ONE (12:35)
[2022-07-19] MEDS ORDERED: BUPIVAcaine/PF 2.5 mg/ml (0.25%) 30ml vial ONE (12:35)
[2022-07-19] MEDS ORDERED: BUPIVAcaine/PF 2.5 mg/ml (0.25%) 30ml vial IJ ONE (12:49)
[2022-07-19] MEDS ORDERED: LIDOcaine 1% 30ml preserv. free vial IJ ONE (12:49)
[2022-07-19] MEDS ORDERED: ondansetron/PF 4mg/2ml inj ONE (13:21)
--- NOTE | 2022-07-19 13:24 | NUR ---
Received from OR via ANI , accompanied by Anesthesiologist LINA and report given by Anesthesiolgist. PATIENT WITH 20G PIV IN LEFT HAND RUNNING LR AT 100. DENIES APAAIN AT THIS TIME. DRESSING TO ABDOMEN IS CDI AT THIS TIME. Addendum: 07/19/22 at 1334 by Kirill Galvan RN, RN Amended: Links added.
--- NOTE | 2022-07-19 14:24 | NUR ---
ABLE TO SAFELY AMBULATE AND TRANSFER SELF. IV TAKEN OUT WITHOUT ANY COMPLICATIONS. ALL DISCHARGE INSTRUCTIONS COVERED WITH PATIENT AND ALL QUESTIONS ANSWERED. PATIENT TAKEN OUT VIA WHEELCHAIR TO PERSONAL VEHICLE WHERE FAMILY/FRIEND DROVE PATIENT HOME. Addendum: 07/19/22 at 1438 by Kirill Galvan RN, RN Amended: Links added.
[2022-07-19] MEDS ORDERED: ACET-1059 PO ×3 (18:58→19:00)
[2022-07-19] MEDS ORDERED: ACET-2 PO (19:02)
== END 2022-07-19 14:24 | disposition home or self-care (01) ==
LOC: PAS 09:22
PROVIDERS: ATTEND Thoracic Surgery (Cardiothoracic Vascular Surgery)
DX: K43.2 Incisional hernia without obstruction or gangrene (principal); I25.10 Atherosclerotic heart disease of native coronary artery without angina pectoris; I10 Essential (primary) hypertension; I25.2 Old myocardial infarction; E78.00 Pure hypercholesterolemia, unspecified; G47.30 Sleep apnea, unspecified; M86.9 Osteomyelitis, unspecified; Z95.1 Presence of aortocoronary bypass graft; Z79.899 Other long term (current) drug therapy; Z79.82 Long term (current) use of aspirin; Z79.01 Long term (current) use of anticoagulants; Z87.891 Personal history of nicotine dependence; Z95.5 Presence of coronary angioplasty implant and graft; Z91.013 Allergy to seafood; Z98.890 Other specified postprocedural states
CPT/HCPCS: 36415; 49593; 80053; 81003; 82948; 85025; 85610; 85730; 86885; 86900; 86901; C1781; J0690; J2250; J2405; J2704; J3010; J3370; J3490; J7030; J7120; Z7506; Z7512; A4215; A4618; A6258; A7000